=== PATIENT | male | born 1940 | race Caucasian/White ===

== ENCOUNTER 2023-04-18 11:11 | Emergency (ER) | payer OTHER, SELFPAY ==
[2023-04-18 11:20] VITALS: BP 137/93
--- NOTE | 2023-04-18 12:00 | ED.GENMED ---
History of Present Illness
General
Chief Complaint: Chest Problem
Source: patient
Exam Limitations: none
Time Seen by Provider: 04/18/23 11:41
Travel History
Have you had any contact with someone who has COVID-19?: No
Do you have any symptoms of coronavirus? Fever > 100 degrees, chills, cough, shortness of breath, sore throat, loss of taste or smell, muscle aches, or headache?: No
History of Present Illness
History of Present Illness:
83-year-old male presents for evaluation after being seen by urgent care. He fell in a parking lot 3 days ago and landed on his right side. He had persistent swelling in his right hand and pain in his right chest wall. Eventually got x-rays of
his right hand at the [facility] and went to the urgent care, [facility] to have his chest workup. He was told he had a fracture in his right hand. X-ray of his chest today showed possible pulmonary edema versus mass per the patient and
had an abnormal EKG and was sent here for further evaluation. He had no chest pain or shortness of breath prior to the fall. He is not anticoagulated. No fever. The pain in his right chest wall is made worse with breathing. No other complaints
at this time
Past History
Past History
ED Past Medical History: Cancer (Prostate cancer) and Seizures
ED Past Surgical History: Appendectomy, Orthopedic and Other
Social History
Tobacco: Non-smoker
Personal:
Living: with family
Employment: Retired
Phy Exam
Physical Exam
Physical Exam:
General: Well-appearing male no acute respiratory distress
HEENT: Normocephalic atraumatic
Heart: Regular rate and rhythm no murmurs
Lungs: Clear to auscultation bilaterally no wheezing
Musculoskeletal exam: Right hand wrapped in an ulnar gutter splint. Right anterior lateral chest wall tender without step ecchymosis or swelling
Abdomen is soft and nontender nondistended normal bowel sounds
Extremities: No cyanosis or edema
Course
Orders/Labs/Results
Orders:
Orders
04/18/23 11:22
EKG [Electrocardiogram (*1)] Urgent
Reason for Study: Chest Pain
Electrocardiogram (*1) Urgent
Reason for Study: Chest Pain
EKG- Treatment ONCE
04/18/23 12:07
BNP [NT-proBNP] Urgent
Complete Blood Count/With Diff Urgent
Comprehensive Metabolic Panel Urgent
Troponin I Urgent
04/18/23 12:27
CT Chest With Iv Contrast Urgent
Comment:
Reason For Exam: right chest pain after fall,
Abnormal Lab Results
04/18/23
12:07
WBC 11.5 H 10^3/uL
(4.8-10.8)
MCH 31.6 H pg
(27.0-31.0)
Abs Immat Gran (auto) 0.1 H 10^3/uL
(0-0.05)
Absolute Neuts (auto) 8.6 H 10^3/uL
(1.4-6.5)
Absolute Monos (auto) 1.3 H 10^3/uL
(0.1-0.6)
Lymphocytes % 11.5 L %
(20.5-51.1)
Monocytes % 10.9 H %
(1.7-9.3)
Glucose 111 H mg/dl
(70-99)
Alkaline Phosphatase 155 H U/L
(38-126)
04/18/23 12:07
04/18/23 12:07
Vital Signs
Initial and Last Documented VS:
Initial Vital Signs
Temp Pulse Resp BP Pulse Ox
98.2 F 101 18 137/93 95
04/18/23 11:20 04/18/23 11:20 04/18/23 11:20 04/18/23 11:20 04/18/23 11:20
Last Documented Vital Signs
Temp Pulse Resp BP Pulse Ox
98.2 F 88 17 157/80 95
04/18/23 11:20 04/18/23 13:15 04/18/23 13:15 04/18/23 13:00 04/18/23 13:38
MDM/Problems Addressed
Differential Diagnosis Includes:
Recent fall with right hand pain and known fracture of the base of the fifth metacarpal. X-rays of the chest at the urgent care were reportedly abnormal by the patient and his son. Will attempt to load the x-rays on our system through radiology.
Patient may require more imaging of his chest. Will get labs as well. EKG here.
*Critical Care Note
Total Time (30-74mins, 75-104mins- exclusive of procedures): Not Applicable
Update Note
Update Note:
EKG shows sinus rhythm here no ischemic changes. Did order CT of the chest with IV contrast secondary to the questionable abnormal finding at urgent care. CT was negative for rib fracture or pneumo or hemothorax edema or mass. This is reassuring.
Suspect chest wall strain causing pain. Patient has an orthopedic doctor, Dr. Love he intends to follow-up with regarding his hand fracture
ED Attending Note
-
Portions of this chart may have been created with voice recognition software.� Occasional wrong word or��sound alike� substitutions may have occurred due to the inherent limitations of voice recognition software.
Discharge Plan
Departure
Patient Disposition: Home (Routine Discharge)
Date of Disposition: 04/18/23
Time of Disposition: 14:30
Patient with high blood pressure during this ER visit?: No
Discharge Problem:
Fracture of hand, Strain of chest wall
Instructions: Muscle and Bone Pain (DC)
Prescriptions:
No Action
phenytoin sodium extended 100 MG capsule
100 mg PO Q48H@0800
levothyroxine 125 MCG tablet
250 mcg PO MOTUWETHFR
irbesartan 150 MG tablet
150 mg PO QPM
gabapentin 600 MG tablet
600 mg PO QPM
phenytoin sodium extended 100 MG capsule
200 mg PO HS
garlic 1,000 MG capsule
1,000 mg PO DAILY
calcium carbonate-vitamin D3 [Calcium 600 + D(3)] 1 EACH tablet
1 tab PO HS
calcium carbonate-vitamin D3 [Calcium 600 + D(3)] 1 EACH tablet
2 tab PO DAILY
cilostazol 100 mg Tablet
100 mg PO BID
atorvastatin 80 mg Tablet
80 mg PO QPM
aspirin 325 mg Tablet
325 mg PO QPM
Theragen Tablet
1 tab PO DAILY
phenytoin sodium extended 100 mg Capsule
200 mg PO Q48H@0800
tamsulosin 0.4 mg Capsule
0.4 mg PO QPM
Patient Comments:
04/18/2023, take 30 min after evening meal.
levothyroxine 125 mcg Tablet
125 mcg PO SUSA
ibuprofen 200 mg Tablet
600 mg PO BIDPRN PRN (Reason: mild pain)
finasteride 1 mg Tablet
1 mg PO DAILY
magnesium oxide 400 mg magnesium Tablet
400 mg PO DAILY
Referrals:
Twin Gates MD [Family Provider] -
Activity Restrictions/Additional Instructions:
Keep splint on and dry. Follow-up with your orthopedic doctor as planned. Use ibuprofen or Tylenol for pain. Return if worse otherwise.
Interventions
Interventions:
*Risk Screen - Suicide Last Done: 04/18/23 12:04
*General Assessment Last Done: 04/18/23 12:04
*Neglect/Abuse Screening Last Done: 04/18/23 12:04
*ED COVID-19 Vaccine History Last Done: 04/18/23 12:03
ED- Cardiac Assessment Last Done: 04/18/23 13:38
ED- Pulmonary Assessment Last Done: 04/18/23 13:38
[2023-04-18 12:02] VITALS: BP 152/88; BMI 27.2
[2023-04-18 12:14] LABS: % Basophils 0.4 % (0-2); % Eosinophils 1.7 % (0-6); % Immature Granulocytes 0.5 % (0-0.5); % Lymphocytes 11.5 % (20.5-51.1); % Monocytes 10.9 % (1.7-9.3); Absolute Basophils 0.1 10^3/uL (0-0.2); Absolute Eosinophils 0.2 10^3/uL (0-0.7); Absolute Immature Granulocytes 0.1 10^3/uL (0-0.05); Absolute Lymphocytes 1.3 10^3/uL (1.2-3.4); Absolute Monocytes 1.3 10^3/uL (0.1-0.6); Absolute Neutrophils 8.6 10^3/uL (1.4-6.5); Hematocrit 47.5 % (39.0-52.0); Hemoglobin 16.2 g/dL (13.0-18.0); Mean Corp Hgb Conc. 34.1 g/dL (33.0-37.0); Mean Corpuscular Hgb 31.6 pg (27.0-31.0); Mean Corpuscular Volume 92.6 fL (80.0-94.0); Mean Platelet Volume 9.4 fL (7.4-10.4); Nucleated Red Blood Cells % 0 % (-); Platelet Count 171 10^3/uL (130-400); Red Blood Cell Count 5.13 10^6/uL (4.70-6.10); Red Cell Dist. Width 14.1 % (11.5-14.5); White Blood Cell Count 11.5 10^3/uL (4.8-10.8)
[2023-04-18 12:35] LABS: ALT (SGPT) 42 U/L (0-50); AST (SGOT) 31 U/L (17-59); Albumin 3.9 g/dl (3.5-5.0); Alkaline Phosphatase 155 U/L (38-126); Blood Urea Nitrogen 18 mg/dl (9-20); Calcium 9.6 mg/dl (8.4-10.2); Carbon Dioxide 30 mmol/L (22-30); Chloride 99 mmol/L (98-107); Estimated Creatinine Clearance 67 ml/min; Glucose 111 mg/dl (70-99); Potassium 4.5 mmol/L (3.5-5.1); Sodium 135 mmol/L (135-145); Total Bilirubin 0.7 mg/dl (0.2-1.3); Total Protein 6.6 g/dl (6.3-8.2); eGFR > 60.00
[2023-04-18 12:38] LABS: NT-proBNP 91.6 pg/ml; Troponin I < 0.012 ng/ml
[2023-04-18 13:00] VITALS: BP 157/80
[2023-04-18 14:36] VITALS: BP 152/81
== END 2023-04-18 14:50 | disposition home or self-care (01) ==
LOC: EMR 11:11
PROVIDERS: EMERGENCY PHYSICIAN Emergency Medicine; FAMILY PHYSICIAN Family Medicine
DX: S29.011A Strain of muscle and tendon of front wall of thorax, initial encounter (principal); S62.91XA Unspecified fracture of right hand, initial encounter for closed fracture; W19.XXXA Unspecified fall, initial encounter
CPT/HCPCS: 99285; 71260; 80053; 83880; 84484; 85025; 93005; Q9967

== ENCOUNTER 2023-04-27 11:40 | Emergency (ER) | payer OTHER, SELFPAY ==
[2023-04-27 11:42] VITALS: BP 146/97
[2023-04-27] MEDS: FLEET PHOSPHATE ENEMA-ADULT 135 ML RECTAL (14:11)
--- NOTE | 2023-04-27 15:16 | ED.GENMED ---
History of Present Illness
General
Chief Complaint: Bowel Problem
Source: patient
Exam Limitations: none
Time Seen by Provider: 04/27/23 12:21
Nursing documentation reviewed up to this point in time: agreed with
Travel History
Have you had any contact with someone who has COVID-19?: No
Do you have any symptoms of coronavirus? Fever > 100 degrees, chills, cough, shortness of breath, sore throat, loss of taste or smell, muscle aches, or headache?: No
History of Present Illness
History of Present Illness:
Patient with recent hand surgery, who has been taking Tylenol with codeine for pain relief, presents to ED secondary to inability to have bowel movement despite urge, along with difficulty urination over the past 24 hours. Denies fever or chills.
Denies nausea or vomiting. Denies trauma. Denies back pain. Denies previous history of similar symptoms.
Past History
Past History
ED Past Medical History: Cancer (Prostate cancer) and Seizures
ED Past Surgical History: Appendectomy, Orthopedic and Other
Social History
Tobacco: Non-smoker
Personal:
Living: with family
Employment: Retired
Review of Systems
Review of Systems
Allergies reviewed?: Yes
All Other Systems: ROS reviewed and negative except as documented in HPI and ROS
Constitutional: Reports no symptoms
Respiratory: Reports no symptoms
ABD/GI: Reports abdominal pain and constipated; Denies nausea or vomiting
: Reports difficulty voiding
Musculoskeletal: Reports no symptoms
Skin: Reports no symptoms
Neurological: Reports no symptoms
Phy Exam
Physical Exam
Physical Exam:
Physical Exam
General: mild distress, not acutely ill. afebrile
Head: nc/at. eomi
Neck: supple.
Abdomen: normal bowel sounds. mild lower abdominal tenderness to palpation.
Neuro: alert and oriented. no focal neurological deficits
Skin: no rash
Psychiatric: well kept. interactive and cooperative
Extremities: no edema. no calf tenderness.
Course
Orders/Labs/Results
Orders:
Orders
04/27/23 12:21
CR Obstruct Series W/pa Chest Urgent
Comment:
Reason For Exam: abdominal distention with lack of BM
04/27/23 12:24
Bladder Scan- Treatment ONCE
Straight cath- Treatment ONCE
04/27/23 13:39
Phosphate Enema [Fleet Phosphate Enema-Adult] 135 ml RECTAL NOW STA
Vital Signs
Initial and Last Documented VS:
Initial Vital Signs
Temp Pulse Resp BP Pulse Ox
98.2 F 110 16 146/97 98
04/27/23 11:42 04/27/23 11:42 04/27/23 11:42 04/27/23 11:42 04/27/23 11:42
Last Documented Vital Signs
Temp Pulse Resp BP Pulse Ox
98.1 F 113 18 135/86 97
04/27/23 15:27 04/27/23 15:27 04/27/23 15:27 04/27/23 15:27 04/27/23 15:27
MDM/Problems Addressed
MDM/Problems Addressed:
Bladder scan: > 500 ml urine. Patient straight cath, with significant improvement symptoms.
X-ray report reviewed. On rectal exam, hard stool along with soft stool removed manually. Patient given Fleet enema afterwards, with number of successful bowel movements. Patient expresses significant improvement in symptoms after treatment.
Patient remains afebrile, hemodynamically stable, and nontoxic-appearing. Patient will be advised to stop taking Tylenol with codeine, and take MiraLAX twice daily x 2 days, along with stool softener. Patient expresses understanding, at time of
discharge, to the care of his son.
*Critical Care Note
Total Time (30-74mins, 75-104mins- exclusive of procedures): Not Applicable
ED Attending Note
-
Portions of this chart may have been created with voice recognition software.� Occasional wrong word or��sound alike� substitutions may have occurred due to the inherent limitations of voice recognition software.
Discharge Plan
Departure
Patient Disposition: Home (Routine Discharge)
Date of Disposition: 04/27/23
Time of Disposition: 15:16
Patient with high blood pressure during this ER visit?: Yes
Condition: Good
Discharge Problem:
Constipation, Acute urinary retention
Instructions: Constipation, Adult (DC), Dealing with Urinary Retention from the Drugs You Take
Prescriptions:
No Action
phenytoin sodium extended 100 MG capsule
100 mg PO Q48H@0800
levothyroxine 125 MCG tablet
250 mcg PO MOTUWETHFR
irbesartan 150 MG tablet
150 mg PO QPM
gabapentin 600 MG tablet
600 mg PO QPM
phenytoin sodium extended 100 MG capsule
200 mg PO HS
garlic 1,000 MG capsule
1,000 mg PO DAILY
calcium carbonate-vitamin D3 [Calcium 600 + D(3)] 1 EACH tablet
1 tab PO HS
calcium carbonate-vitamin D3 [Calcium 600 + D(3)] 1 EACH tablet
2 tab PO DAILY
cilostazol 100 mg Tablet
100 mg PO BID
atorvastatin 80 mg Tablet
80 mg PO QPM
aspirin 325 mg Tablet
325 mg PO QPM
Theragen Tablet
1 tab PO DAILY
phenytoin sodium extended 100 mg Capsule
200 mg PO Q48H@0800
tamsulosin 0.4 mg Capsule
0.4 mg PO QPM
Patient Comments:
04/18/2023, take 30 min after evening meal.
levothyroxine 125 mcg Tablet
125 mcg PO SUSA
ibuprofen 200 mg Tablet
600 mg PO BIDPRN PRN (Reason: mild pain)
finasteride 1 mg Tablet
1 mg PO DAILY
magnesium oxide 400 mg magnesium Tablet
400 mg PO DAILY
Referrals:
Twin Gates MD [Family Provider] -
Activity Restrictions/Additional Instructions:
As discussed, please discontinue use of codeine, as it may be contributing to your presenting symptoms. Please use MiraLAX twice daily x 2 days, until you start having regular bowel movements, along with daily administration of stool softener.
Interventions
Interventions:
*Risk Screen - Suicide Last Done: 04/27/23 16:01
*General Assessment Last Done: 04/27/23 16:01
*ED COVID-19 Vaccine History Last Done: 04/27/23 11:42
*Nursing Disposition Last Done: 04/27/23 16:01
YZ-Jyfbmq-Uokvvkfuet Assessment Last Done: 04/27/23 13:02
Discharge Date and Time
Discharge Date/Time: 04/27/23 16:02
[2023-04-27 15:27] VITALS: BP 135/86
== END 2023-04-27 16:02 | disposition home or self-care (01) ==
LOC: EMR 11:40
PROVIDERS: EMERGENCY PHYSICIAN Emergency Medicine; FAMILY PHYSICIAN Family Medicine
DX: K59.00 Constipation, unspecified (principal); R33.9 Retention of urine, unspecified; R56.9 Unspecified convulsions; K21.9 Gastro-esophageal reflux disease without esophagitis; M19.90 Unspecified osteoarthritis, unspecified site; E78.5 Hyperlipidemia, unspecified; I10 Essential (primary) hypertension; M48.00 Spinal stenosis, site unspecified; E03.9 Hypothyroidism, unspecified; Z85.46 Personal history of malignant neoplasm of prostate; Z86.73 Personal history of transient ischemic attack (TIA), and cerebral infarction without residual deficits; Z87.891 Personal history of nicotine dependence; Z79.82 Long term (current) use of aspirin; Z88.8 Allergy status to other drugs, medicaments and biological substances
CPT/HCPCS: 99283; 51701; 51798; 74022

== ENCOUNTER 2023-04-28 18:59 | Observation (INO) | payer OTHER, SELFPAY ==
[2023-04-28] VITALS (9 sets, daily range): BP systolic 113–146; BP diastolic 66–84; BMI 25.8
--- NOTE | 2023-04-28 11:40 | ED.GENMED ---
History of Present Illness
General
Chief Complaint: Bowel Problem
Source: patient and family
Exam Limitations: none
Time Seen by Provider: 04/28/23 11:34
Nursing documentation reviewed up to this point in time: agreed with
Travel History
Have you had any contact with someone who has COVID-19?: No
Do you have any symptoms of coronavirus? Fever > 100 degrees, chills, cough, shortness of breath, sore throat, loss of taste or smell, muscle aches, or headache?: No
History of Present Illness
History of Present Illness:
Patient treated yesterday for narcotic induced urinary retention and constipation, returns to ED secondary to continued difficulty with urination and bowel movement since being discharged home. Denies fever. Denies nausea or vomiting. Patient has
not eaten or drank much water since being home. Patient has taken MiraLAX as well as stool softener, without relief in symptoms.
Past History
Past History
ED Past Medical History: Cancer (Prostate cancer) and Seizures
ED Past Surgical History: Appendectomy, Orthopedic and Other
Social History
Tobacco: Non-smoker
Personal:
Living: with family
Employment: Retired
Review of Systems
Review of Systems
Allergies reviewed?: Yes
All Other Systems: ROS reviewed and negative except as documented in HPI and ROS
Constitutional: Reports no symptoms
EENT: Reports no symptoms
Respiratory: Reports no symptoms
Cardiac: Reports no symptoms
ABD/GI: Reports abdominal pain and constipated
: Reports difficulty voiding
Musculoskeletal: Reports no symptoms
Skin: Reports no symptoms
Neurological: Reports no symptoms
Phy Exam
Physical Exam
Physical Exam:
Physical Exam
General: mild distress, not acutely ill. afebrile
Head: nc/at. eomi
Neck: supple. no meningeal signs.
Heart: s1/s2 regular rate and rhythm, no murmur. equal radial pulses.
Lungs: no acute respiratory distress. clear bilaterally
Abdomen: normal bowel sounds. mild lower abdominal tenderness to palpation.
Neuro: alert and oriented. no focal neurological deficits
Skin: no rash
Psychiatric: well kept. interactive and cooperative
Extremities: no edema. no calf tenderness.
Course
Orders/Labs/Results
Orders:
Orders
04/28/23 11:35
Phosphate Enema [Fleet Phosphate Enema-Adult] 135 ml RECTAL NOW STA
04/28/23 11:36
Bladder Scan- Treatment ONCE
04/28/23 11:43
0.9% Sodium Chloride 500 ml [Nss] 500 ml IV BOLUS
04/28/23 11:45
Basic Metabolic Panel Urgent
Complete Blood Count/No Diff Urgent
Magnesium Urgent
Urinalysis Reflex To Culture Urgent
Date Specimen was Collected: 04/28/23
Time Specimen was Collected: 11:44
Urine Microscopic Reflex Cult Urgent
Urine Culture Urgent
DONNIE Source: U
Specimen Description:
Date Specimen was Collected: 04/28/23
Time Specimen was Collected: 11:44
04/28/23 13:36
Enema- Treatment ONCE
Type: Soap Suds
04/28/23 16:12
CT Abd/pel Without Iv Or Oral Urgent
Comment:
Reason For Exam: LLQ pain with hematuria
04/28/23 16:49
CefTRIAXone [Rocephin] 1,000 mg IV NOW STA
04/28/23 18:05
Admit/Transfer Patient As Directed
Co-Sign Provider:
Level of Care: Observation services
Assign to:: Medical/Surgical
Physician / Group: Edith
Diagnosis: Urinary Retention, Constipation
04/28/23 18:12
Code Status As Directed
Resuscitation Status: Full Code
04/28/23 19:22
Acetaminophen [Tylenol] 650 mg PO Q4HPRN PRN
Levothyroxine [Synthroid] 125 mcg PO SuSa@0700
Methylnaltrexone [place] [Relistor] 8 mg SC ONCE ONE
04/28/23 19:22
Activity As Directed
Activity Level: Out of Bed-Early Mobility
With Assistance
Bladder Scan As Directed
Follow Bladder Retention/Intermittent Cath Algorithm?: No
PRN if no void in __ hours: 6
Frequency: Per Retention Algorithm
If Bladder Scan Result >: 400
then:: Place catheter
I&O [Intake/ Output] As Directed
Frequency: q12h
Pneumatic Compression Sleeves As Directed
Type: Knee high
Vital Signs As Directed
Frequency: Per unit guidelines
DX Deep Vein Thrombosis Video Routine
04/28/23 20:00
Cilostazol [Pletal] 100 mg PO BID
Docusate Sodium [Colace] 100 mg PO BID
04/28/23 22:00
Phenytoin [Dilantin] 100 mg PO HS
04/29/23 05:43
Basic Metabolic Panel IN AM
Complete Blood Count/No Diff IN AM
Magnesium IN AM
TSH Reflex To Free T4 IN AM
04/29/23 Breakfast
Full Liquids
At Your Request: Limited Participation
Does patient need a safe tray?: No
04/29/23 08:00
Atorvastatin [Lipitor] 80 mg PO DAILY
Phenytoin [Dilantin] 200 mg PO Q48H
04/29/23 12:00
finasteride 1 mg PO DAILY
04/29/23 16:00
CefTRIAXone [Rocephin] 1,000 mg IV Q24H
04/29/23 18:00
Aspirin 325 mg PO QPM
Gabapentin [Neurontin] 600 mg PO QPM
Irbesartan [Avapro] 150 mg PO QPM
Tamsulosin [Flomax] 0.4 mg PO QPM
04/30/23 07:00
Levothyroxine [Synthroid] 250 mcg PO MoTuWeThFr@0700
04/30/23 08:00
Phenytoin [Dilantin] 100 mg PO Q48H
Abnormal Lab Results
04/28/23
11:45
WBC 14.8 H 10^3/uL
(4.8-10.8)
MCH 31.2 H pg
(27.0-31.0)
BUN 22 H mg/dl
(9-20)
Glucose 123 H mg/dl
(70-99)
Urine Ketones 1+ A
(Negative)
Ur Occult Blood Reflex 2+ A
(Negative)
Urine Bilirubin 1+ A
(Negative)
Leukocyte Esterase Rfl Trace A
(Negative)
Urine RBC 11-15 A /HPF
(0-2)
Urine WBC (Reflex) 16-20 A /HPF
(0-5)
Urine Bacteria (Reflex) Many A
(Negative)
04/28/23 11:45
04/28/23 11:45
Vital Signs
Initial and Last Documented VS:
Initial Vital Signs
Temp Pulse Resp BP Pulse Ox
98.7 F 127 16 113/79 94
04/28/23 10:50 04/28/23 10:50 04/28/23 10:50 04/28/23 10:50 04/28/23 10:50
Last Documented Vital Signs
Temp Pulse Resp BP Pulse Ox
99 F 91 18 131/81 96
04/29/23 07:10 04/29/23 07:10 04/29/23 07:10 04/29/23 07:10 04/29/23 07:10
MDM/Problems Addressed
MDM/Problems Addressed:
Patient with minimal stool production after enema administration, but with worsening abdominal pain and abdominal distention. As such, decision made to obtain CT abdomen pelvis with concern for potential perforated bowel.
CT abdomen pelvis: No perforation noted, but with moderate stool burden.
Bladder scanner reveals greater than 500 mL of urine, and relieved with straight catheterization. However, urinalysis concerning for the development of UTI. Patient will be admitted for further evaluation treatment, including IV antibiotics, IV
fluids, and continue bowel regimen.
*Critical Care Note
Total Time (30-74mins, 75-104mins- exclusive of procedures): Not Applicable
ED Attending Note
-
Portions of this chart may have been created with voice recognition software.� Occasional wrong word or��sound alike� substitutions may have occurred due to the inherent limitations of voice recognition software.
Discharge Plan
Departure
Patient Disposition: Admit
Date of Disposition: 04/28/23
Time of Disposition: 17:30
Admit to: Telemetry
Presentation/result/management discussed w/ accepting MD/DO: Hospitalist
Discharge Problem:
Abdominal pain, Acute urinary retention, Acute UTI
Interventions
Interventions:
*ED COVID-19 Vaccine History Last Done: 04/28/23 10:50
*Nursing Disposition Last Done: 04/28/23 19:16
UP-Gdxvhz-Zauybrmvbr Assessment Last Done: 04/28/23 12:16
Discharge Date and Time
Discharge Date/Time: 04/28/23 19:18
[2023-04-28 11:59] LABS: Hematocrit 44.6 % (39.0-52.0); Hemoglobin 15.7 g/dL (13.0-18.0); Mean Corp Hgb Conc. 35.2 g/dL (33.0-37.0); Mean Corpuscular Hgb 31.2 pg (27.0-31.0); Mean Corpuscular Volume 88.5 fL (80.0-94.0); Platelet Count 219 10^3/uL (130-400); Red Blood Cell Count 5.04 10^6/uL (4.70-6.10); Red Cell Dist. Width 13.9 % (11.5-14.5); White Blood Cell Count 14.8 10^3/uL (4.8-10.8)
[2023-04-28] MEDS: FLEET PHOSPHATE ENEMA-ADULT 135 ML RECTAL (12:12)
[2023-04-28 12:20] LABS: Urine Albumin Trace (Neg - Trace); Urine Bilirubin 1+ (Negative); Urine Character Clear (Clear); Urine Color Yellow; Urine Glucose Negative (Negative); Urine Ketone 1+ (Negative); Urine Leukocyte Trace (Negative); Urine Nitrite Negative (Negative); Urine Occult Blood 2+ (Negative); Urine Specific Gravity 1.025 (<1.030); Urine Urobilinogen Negative (Neg - 1+)
[2023-04-28 12:22] LABS: Blood Urea Nitrogen 22 mg/dl (9-20); Calcium 9.5 mg/dl (8.4-10.2); Carbon Dioxide 26 mmol/L (22-30); Chloride 103 mmol/L (98-107); Glucose 123 mg/dl (70-99); Magnesium 2.1 mg/dl (1.6-2.3); Potassium 4.2 mmol/L (3.5-5.1); Sodium 135 mmol/L (135-145); eGFR > 60.00
[2023-04-28 12:39] LABS: Urine Bacteria Many (Negative); Urine Squamous Cell 0-2 /LPF (Few); Urine White Cell 16-20 /HPF (0-5)
[2023-04-28] MEDS: NSS 500 IV (14:24)
[2023-04-28] MEDS: ROCEPHIN 1000 MG IV (16:53)
--- NOTE | 2023-04-28 18:21 | HPS.HSE ---
Addendum entered and electronically signed by Davonte Shamra MD 04/28/23 18:40:
I saw and examined the patient.
The CARTON STAMPER or PA's note was reviewed and I agree with the note.
Comment: After my examination and review abdomen remains protuberant and tender with waves of cramping abdominal pain that go away and has trouble having further bowel movements he has apparent urine retention is led to a urinary tract infection
with many bacteria which will be treated empirically awaiting culture given the lack of results with multiple enemas stool softeners and laxatives including MiraLAX twice daily which will be continued I would give the patient Relistor to counteract
the narcotic effects of his prior dosing with codeine for his pain hydration will also be important continued bladder scanning for retention if retention issues continue may benefit from the addition of tamsulosin but I believe is driven by the his
ongoing constipation and should resolve once that is.
Original Note:
Family Physician
-
Family Physician: [facility]
Chief Complaint
-
Constipation and Urinary Retention
History of Present Illness
Pt is an 83yo M w/ PMH of HTN, HLD, PAD, Hypothyroidism, GERD, Prostate Cancer, and Seizure disorder is presenting to the ED c/o urinary retention and abdominal discomfort. The pt was seen at yesterday and treated for narcotic induced
constipation as well as urinary retention. He states that when he arrived home, his symptoms had mostly resolved after enema and straight catheterization yesterday, but as of this morning, his symptoms have returned. He states he has not ingested
much of anything since his return home. He admits to lower abdominal pain, chills and headache. Pt denies fever, diaphoresis, nausea. vomiting, low back pain, or saddle paraesthesias.
Medical History
Past Medical History
Past Medical History: Reports Other
Additional Past Medical History:
Peripheral Arterial Disease
Essential Hypertension
Hyperlipidemia
Seizure Disorder
Spinal Stenosis
Hypothyroidism
Prostate Cancer
Past Surgical History: Reports Other
Additional Past Surgical History:
Right Fem-Pop Bypass
Appendectomy
Herniated Disc Repair
Knee Replacement x 3
Social History
Tobacco: Non-smoker
Alcohol: Daily (1 beer Daily)
Family History
Family History: Not pertinent
Allergies / Home Medications
Allergies reflects when Allergies were last updated in [employer].
Home Medications with original date entered in [employer]
Allergy/Medication List:
Allergies
Allergy/AdvReac Type Severity Reaction Status Date / Time
clopidogrel bisulfate Allergy Unknown Verified 04/27/23 11:44
[From Plavix]
levetiracetam [From Keppra] Allergy Unknown Verified 04/27/23 11:44
lisinopril Allergy 'tickling Verified 04/27/23 11:44
cough'
Home Medications
irbesartan 150 mg tablet 150 mg PO QPM 09/10/14
levothyroxine 125 mcg tablet 250 mcg PO MOTUWETHFR 09/10/14
phenytoin sodium extended 100 mg capsule 100 mg PO Q48H@0800 09/10/14
gabapentin 600 mg tablet 600 mg PO QPM 06/07/15
calcium carbonate 600 mg-vitamin D3 10 mcg (400 unit) tablet (Calcium 600 + D(3)) 1 tab PO HS 06/25/15
calcium carbonate 600 mg-vitamin D3 10 mcg (400 unit) tablet (Calcium 600 + D(3)) 2 tab PO DAILY 06/25/15
garlic 1,000 mg capsule 1,000 mg PO DAILY 06/25/15
phenytoin sodium extended 100 mg capsule 100 mg PO HS 06/25/15
cilostazol 100 mg tablet 100 mg PO BID 10/27/22
aspirin 325 mg tablet 325 mg PO QPM 04/18/23
atorvastatin 80 mg tablet 80 mg PO DAILY 04/18/23
finasteride 1 mg tablet 1 mg PO DAILY 04/18/23
levothyroxine 125 mcg tablet 125 mcg PO SUSA 04/18/23
magnesium oxide 400 mg PO DAILY 04/18/23
phenytoin sodium extended 100 mg capsule 200 mg PO Q48H@0800 04/18/23
tamsulosin 0.4 mg capsule 0.4 mg PO QPM 04/18/23
therapeutic multivitamin 1 tab PO DAILY 04/18/23
bisacodyl 5 mg tablet,delayed release (Dulcolax (bisacodyl)) 10 mg PO DAILYPRN PRN CONSTIPATION 04/28/23
polyethylene glycol 3350 17 gram oral powder packet (Miralax) 17 g PO DAILYPRN PRN CONSTIPATION 04/28/23
Review of Systems
-
A 12 point ROS was completed and negative except as noted: Yes
Constitutional: Reports Chills
Respiratory: Denies Cough or Trouble Breathing
Cardiac: Denies Chest Pain or Palpitations
Abdomen/GI: Reports See HPI
Physical Exam
Vital Signs
Vital Signs
Temp Pulse Resp BP Pulse Ox
98.7 F 127 16 123/84 90
04/28/23 10:50 04/28/23 10:50 04/28/23 10:50 04/28/23 16:01 04/28/23 16:00
Physical Exam
General: Comfortable and Conversant
HEENT: Anicteric and Moist mucous membranes
Respiratory: Clear and Non Labored Respirations
Cardiac: S1/S2 and Regular Rhythm
GI: Soft, Tender (Mild throughout without rebound or guarding) and Distended (Hyper-resonate to percussion)
Musculoskeletal: No Clubbing, No Cyanosis and No Edema
Skin: Warm and Dry
Neuro: Awake, Oriented and Nonfocal/grossly intact
Psych: Calm
Laboratory Results
-
04/28/23 11:45
04/28/23 11:45
Data Reviewed
-
CT Scan: Report Reviewed by me
Lab Data: Labs Reviewed by me
Impression/Plan
-
Severe Constipation
-Patient required multiple enemas in ED yesterday and today
-Give dose of Relistor
-Continue Miralax BID
Urinary Tract Infection with Urinary Retention
-Patient required straight cath yesterday and today
-Monitor bladder scans
-If continued retention would place Castro
-Continue Rocephin
-Await urine culture
Peripheral Arterial Disease
-Continue aspirin and Pletal
Essential Hypertension
-Continue irbesartan with hold parameters
Hyperlipidemia
-Continue atorvastatin
Seizure Disorder
-Continue phenytoin
Spinal Stenosis
-Continue gabapentin
Hypothyroidism
-Continue levothyroxine
Hx Prostate CA
-Continue finasteride and tamsulosin
DVT Proph: SCDs
Code Status: Full Code
[2023-04-28] MEDS: SYNTHROID PO (21:02)
[2023-04-28] MEDS: RELISTOR 8 MG SC (21:49)
[2023-04-28] MEDS: COLACE 100 MG PO (21:50)
[2023-04-28] MEDS: PLETAL 100 MG PO (21:51)
--- NOTE | 2023-04-28 21:59 | W.PN.UPDATE ---
Update Note
Progress Note Update
Patient reported that he is using phenytoin 200mg at hs plus his doses of 100mg q48hrs that alternated with 200mg q48hrs during daytime. hs dose changed to 200mg and will check phenytoin level.
[2023-04-28] MEDS: DILANTIN 200 MG PO (22:45)
--- NOTE | 2023-04-28 23:00 | PTCARENOTE ---
Received pt from ED, pt was pulled over per request. AAOx3 TUOLUMNE, pt complaining of bladder feeling full- BS for 420ml- contacted [employer]- li ordered and inserted. Will continue to monitor
[2023-04-29] MEDS: TYLENOL 650 MG PO ×2 (02:23→13:25)
[2023-04-29] MEDS: MYLICON 80 MG PO ×2 (02:23→08:39)
[2023-04-29 06:28] LABS: Dilantin 15.7 ug/ml (10-20); Hematocrit 40.8 % (39.0-52.0); Hemoglobin 14.4 g/dL (13.0-18.0); Mean Corp Hgb Conc. 35.3 g/dL (33.0-37.0); Mean Corpuscular Hgb 31.6 pg (27.0-31.0); Mean Corpuscular Volume 89.7 fL (80.0-94.0); Mean Platelet Volume 9.3 fL (7.4-10.4); Platelet Count 214 10^3/uL (130-400); Red Blood Cell Count 4.55 10^6/uL (4.70-6.10); Red Cell Dist. Width 13.6 % (11.5-14.5)
[2023-04-29 06:29] LABS: Blood Urea Nitrogen 18 mg/dl (9-20); Calcium 8.7 mg/dl (8.4-10.2); Carbon Dioxide 26 mmol/L (22-30); Chloride 103 mmol/L (98-107); Estimated Creatinine Clearance 76 ml/min; Glucose 112 mg/dl (70-99); Magnesium 2.2 mg/dl (1.6-2.3); Potassium 3.8 mmol/L (3.5-5.1); Sodium 134 mmol/L (135-145); eGFR > 60.00
[2023-04-29 07:09] LABS: TSH Reflex To Free T4 1.88 uIU/ml (0.47-4.68)
[2023-04-29 07:10] VITALS: BP 131/81
[2023-04-29] MEDS: LIPITOR 80 MG PO (08:37)
[2023-04-29] MEDS: COLACE 100 MG PO ×2 (08:37→19:54)
[2023-04-29] MEDS: PLETAL 100 MG PO ×2 (08:38→19:54)
[2023-04-29] MEDS: SYNTHROID 125 MCG PO (08:38)
[2023-04-29] MEDS: DILANTIN 200 MG PO ×2 (08:39→19:54)
--- NOTE | 2023-04-29 09:39 | W.PN.HOSP.TC ---
Today's Communication/Plan
-
Continue aggressive bowel regime
Hydration
Will consult GI in regards to continued constipation has been resistant to modalities and aggressive bowel regime
Assessment / Plan
Assessment / Plan
Pt is an 83yo M w/ PMH of HTN, HLD, PAD, Hypothyroidism, GERD, Prostate Cancer, and Seizure disorder is presenting to the ED c/o urinary retention and abdominal discomfort. The pt was seen at yesterday and treated for narcotic induced
constipation as well as urinary retention. He states that when he arrived home, his symptoms had mostly resolved after enema and straight catheterization yesterday, but as of this morning, his symptoms have returned. He states he has not ingested
much of anything since his return home. He admits to lower abdominal pain, chills and headache. Pt denies fever, diaphoresis, nausea. vomiting, low back pain, or saddle paraesthesias. Abdomen remains protuberant and tender with waves of cramping
abdominal pain that go away and has trouble having further bowel movements he has apparent urine retention is led to a urinary tract infection with many bacteria which will be treated empirically awaiting culture given the lack of results with
multiple enemas stool softeners and laxatives including MiraLAX twice daily which will be continued I would give the patient Relistor to counteract the narcotic effects of his prior dosing with codeine for his pain hydration will also be important
continued bladder scanning for retention if retention issues continue may benefit from the addition of tamsulosin but I believe is driven by the his ongoing constipation and should resolve once that is.
Persisting postvoid residual volumes are high in the face of continued constipation had Castro catheter inserted.
Severe Constipation
-Patient required multiple enemas in ED yesterday and date of admission yesterday
-Given dose of Relistor without much effect
-Continue Miralax BID
-
CT imaging with moderate fecal material throughout the colon that seems to have progressed from previous imaging in the past week
Urinary Tract Infection with Urinary Retention
-Patient required straight cath yesterday and today
-Monitor bladder scans
-If continued retention would place Castro
-Continue Rocephin
-Await urine culture
Peripheral Arterial Disease
-Continue aspirin and Pletal
Recent right hand fracture after fall
-Was treated with Tylenol with codeine which may have aggravated his initial presentation of constipation
-Did not have much response with narcotic antagonist yesterday
Essential Hypertension
-Continue irbesartan with hold parameters
Hyperlipidemia
-Continue atorvastatin
Seizure Disorder
-Continue phenytoin
Spinal Stenosis
-Continue gabapentin
Hypothyroidism
-Continue levothyroxine
Hx Prostate CA
-Continue finasteride and tamsulosin
-Indwelling Castro catheter/instigate void trial after relieving constipation
DVT Proph: SCDs
Code Status: Full Code
Anticipated Discharge: 24 - 48 hours
Subjective/Interval History
-
Date of Service: April 29, 2023
Very small result with multiple enemas and even after Relistor yesterday remains distended and constipated had to have Castro catheter inserted
Objective Data
-
Labs:
Laboratory Results
04/29/23
05:43
WBC 15.0 H
Hgb 14.4
Hct 40.8
Plt Count 214
Sodium 134 L
Potassium 3.8
Chloride 103
Carbon Dioxide 26
BUN 18
Creatinine 0.7
Glucose 112 H
Calcium 8.7
Vital Signs:
Vital Signs
Temp Pulse Resp BP Pulse Ox
99 F 91 18 131/81 96
04/29/23 07:10 04/29/23 07:10 04/29/23 07:10 04/29/23 07:10 04/29/23 07:10
I&O
04/28/23 04/29/23 04/30/23
06:59 06:59 06:59
Intake Total 960 / 960
Output Total 525 / 525
Balance 435 / 435
Review of Systems
-
History Source: Patient
Constitutional: Reports No Appetite
Respiratory: Reports No Symptoms
Cardiac: Reports No Symptoms
Abdomen/GI: Reports Constipated
Genitourinary: Reports Frequency and Hesitancy
Physical Exam
-
General: Well Developed
HEENT: Normocephalic
Cardiac: Regular Rhythm
GI: Soft, Tender and Distended
Neuro: Awake, Alert, Oriented, AO x 3 and No Motor Deficits
Data Reviewed
-
Total Time Spent with Patient (in minutes): 56
Labs: Labs Reviewed by me (Leukocytosis still trending up/urinalysis with apparent UTI/)
[2023-04-29] MEDS: NON-FORMULARY ITEM 1 MG PO (11:32)
--- NOTE | 2023-04-29 14:19 | CM ---
Initial assessment completed with pt.
Pt is an 83yr old male admitted under OBS with urinary retention and constipation
SOLANO issued and signed copy on chart.
At baseline, resident lives alone in a 1 story home with 4 steps to enter.
Pt is independent at baseline; driving and does not have current/hx of DME/VN/SNF.
PCP; [facility]
Pharm; [facility]ast[facility]
PLAN: home with no needs
[2023-04-29] MEDS: STERILE WATER FOR INJECTION 10 ML IV (15:00)
[2023-04-29] MEDS: ROCEPHIN 1000 MG IV (15:00)
--- NOTE | 2023-04-29 16:15 | PTCARENOTE ---
2 molasses enemas given per order, patient tolerated with small BM from each and some relief
[2023-04-29 16:57] VITALS: BP 147/81
[2023-04-29] MEDS: AVAPRO 150 MG PO (16:57)
[2023-04-29] MEDS: FLOMAX 0.400000000000000022 MG PO (16:58)
[2023-04-29] MEDS: ASPIRIN 325 MG PO (16:58)
[2023-04-29] MEDS: NEURONTIN 600 MG PO (16:58)
[2023-04-29] MEDS: OSCAL 500 + D 500 MG PO (23:07)
[2023-04-29 23:20] VITALS: BP 130/69
--- NOTE | 2023-04-29 23:27 | CON.GI ---
Consultation
-
Date/Time Consultation Requested: 04/29/2023
Date/Time Consultation Performed: 04/29/2023
Requesting Provider: Dr. Sharma
Performing Provider: Dr. Bland
Reason for Consultation: Constipation
Medical History
Chief Complaint / HPI
Chief Complaint: Constipation
History of Present Illness:
83-year-old male with history of prostate cancer, history of seizures presenting with constipation and urinary retention. As per patient, he had hand surgery recently and was put on Tylenol with codeine about 2 weeks ago. In the last couple of
days, he has been having some abdominal pain, upper and lower abdomen and constipation. Since , he has not had much bowel movements. Prior bowel pattern was 2 bowel movements a day with some pushing and straining and some incomplete
evacuation. Reports having colonoscopy couple of years ago at [facility] with Dr. Xiao and says it was unremarkable, previous history of colon polyps. History of hemorrhoidal bleeding in the past, status post hemorrhoidectomy with Dr. Xiao.
Prior to this episode, denies much GI symptoms. No abdominal pain, nausea, vomiting, heartburn or trouble swallowing. No unintentional weight loss or NSAID use.
In the ER, leukocytosis noted, CT scan of the abdomen pelvis without contrast showing moderate fecal material throughout the colon, fatty infiltration of the pancreas.
Past Medical History
Past Medical History: HTN, Hypercholesterolemia, Hypothyroidism and Other ( Prostate cancer)
Past Surgical History: Appendectomy
Social History
Tobacco: Non-Smoker
Alcohol: Daily
Family History
Family History: Reviewed & Not Pertinent
Allergies / Home Medications
Allergy/AdvReac Type Severity Reaction Status Date / Time
clopidogrel bisulfate Allergy Unknown Verified 04/27/23 11:44
[From Plavix]
levetiracetam [From Keppra] Allergy Unknown Verified 04/27/23 11:44
lisinopril Allergy 'tickling Verified 04/27/23 11:44
cough'
Medication Instructions Recorded
irbesartan 150 mg tablet 150 mg PO QPM Blood Pressure 09/10/14
levothyroxine 125 mcg tablet 250 mcg PO MOTUWETHFR@07 Thyroid 09/10/14
phenytoin sodium extended 100 mg 100 mg PO Q48H@0800 09/10/14
capsule
gabapentin 600 mg tablet 600 mg PO QPM Pain 06/07/15
calcium carbonate 600 mg-vitamin 1 tab PO HS Supplement 06/25/15
D3 10 mcg (400 unit) tablet
(Calcium 600 + D(3))
calcium carbonate 600 mg-vitamin 2 tab PO DAILY Supplement 06/25/15
D3 10 mcg (400 unit) tablet
(Calcium 600 + D(3))
garlic 1,000 mg capsule 1,000 mg PO DAILY Supplement 06/25/15
phenytoin sodium extended 100 mg 200 mg PO HS 06/25/15
capsule
cilostazol 100 mg tablet 100 mg PO BID VASCULAR DISEASE 10/27/22
aspirin 325 mg tablet 325 mg PO QPM Pain 04/18/23
atorvastatin 80 mg tablet 80 mg PO DAILY High Cholesterol 04/18/23
finasteride 1 mg tablet 1 mg PO DAILY Urinary Issue 04/18/23
levothyroxine 125 mcg tablet 125 mcg PO SUSA@07 Thyroid 04/18/23
magnesium oxide 400 mg PO DAILY Supplement 04/18/23
phenytoin sodium extended 100 mg 200 mg PO Q48H@0800 04/18/23
capsule
tamsulosin 0.4 mg capsule 0.4 mg PO QPM 04/18/23
therapeutic multivitamin 1 tab PO DAILY 04/18/23
acetaminophen 300 mg-codeine 30 mg 1 tab PO Q8HPRN PRN HAND PAINS 04/28/23
tablet
bisacodyl 5 mg tablet,delayed 10 mg PO DAILYPRN PRN CONSTIPATION 04/28/23
release (Dulcolax (bisacodyl))
polyethylene glycol 3350 17 gram 17 g PO DAILYPRN PRN CONSTIPATION 04/28/23
oral powder packet (Miralax)
Review of Systems
-
All other systems: A 12 pt ROS was Negative except as stated above in HPI
Vital Signs
Temp Pulse Resp BP Pulse Ox
98.3 F 100 20 130/69 90
04/29/23 23:20 04/29/23 23:20 04/29/23 23:20 04/29/23 23:20 04/29/23 23:20
Physical Exam
Exam
GI: Soft and Tender (Discomfort on palpation in the mid and lower abdomen mild distention noted,)
Rectal: Other (Rectal exam showed large amount of hard stool in the rectal vault, status post disimpaction)
Results
WBC 15.0 10^3/uL (4.8-10.8) H 04/29/23 05:43
Hgb 14.4 g/dL (13.0-18.0) 04/29/23 05:43
Hct 40.8 % (39.0-52.0) 04/29/23 05:43
MCV 89.7 fL (80.0-94.0) 04/29/23 05:43
Plt Count 214 10^3/uL (130-400) 04/29/23 05:43
Sodium 134 mmol/L (135-145) L 04/29/23 05:43
Potassium 3.8 mmol/L (3.5-5.1) 04/29/23 05:43
Chloride 103 mmol/L (98-107) 04/29/23 05:43
Carbon Dioxide 26 mmol/L (22-30) 04/29/23 05:43
BUN 18 mg/dl (9-20) 04/29/23 05:43
Creatinine 0.7 mg/dL (0.7-1.3) 04/29/23 05:43
Calcium 8.7 mg/dl (8.4-10.2) 04/29/23 05:43
Diagnostic Image Results:
Prior GI Procedures:
EGD:
Colonoscopy:
Assessment / Plan
-
83-year-old male with history of hypertension, hypothyroidism, prostate cancer, recent hand surgery, put on Tylenol/codeine now presenting with fecal impaction/urinary retention, CT scan showing moderate stool in the colon, rectal exam showing fecal
impaction in the rectum status post disimpaction.
-Fecal impaction likely due to constipation from recent codeine use
Continue milk of molasses enemas twice a day
Will also start MiraLAX 1 capful twice a day
Monitor bowel movements and once bowels are evacuated, can titrate MiraLAX dose based on his bowel movements.
Reports having colonoscopy couple of years ago at [facility] with Dr. Xiao.
Will follow
-
-
Thank you for consultation and allowing me to participate in the patient's care. Please call the application security developer GI physician during the after hours with any questions or concerns.
[2023-04-30] MEDS: SYNTHROID 250 MCG PO (05:29)
--- NOTE | 2023-04-30 06:07 | PTCARENOTE ---
Patient with 175cc output from his li this shift, tea colored. TAKE OUT WAITER/WAITRESS aware, she asked me to bladder scan him, his bladder was empty. She ordered labs for this morning.
[2023-04-30 07:00] VITALS: BP 120/75
[2023-04-30 07:31] LABS: Hemoglobin 15.4 g/dL (13.0-18.0); Mean Corp Hgb Conc. 34.2 g/dL (33.0-37.0); Mean Corpuscular Hgb 31.1 pg (27.0-31.0); Mean Corpuscular Volume 90.9 fL (80.0-94.0); Mean Platelet Volume 9.2 fL (7.4-10.4); Platelet Count 242 10^3/uL (130-400); Red Blood Cell Count 4.95 10^6/uL (4.70-6.10); Red Cell Dist. Width 13.7 % (11.5-14.5); White Blood Cell Count 12.2 10^3/uL (4.8-10.8)
[2023-04-30 07:58] LABS: Blood Urea Nitrogen 17 mg/dl (9-20); Calcium 8.8 mg/dl (8.4-10.2); Carbon Dioxide 30 mmol/L (22-30); Chloride 101 mmol/L (98-107); Estimated Creatinine Clearance 59 ml/min; Glucose 145 mg/dl (70-99); Potassium 3.9 mmol/L (3.5-5.1); Sodium 133 mmol/L (135-145); eGFR > 60.00
[2023-04-30] MEDS: MIRALAX 17 GRAMS PO ×2 (08:36→20:10)
[2023-04-30] MEDS: MAG-TAB SR 84 MG PO (08:36)
[2023-04-30] MEDS: LIPITOR 80 MG PO (08:37)
[2023-04-30] MEDS: OSCAL 500 + D 1000 MG PO (08:37)
[2023-04-30] MEDS: COLACE 100 MG PO ×2 (08:37→20:09)
[2023-04-30] MEDS: PLETAL 100 MG PO ×2 (08:37→20:10)
[2023-04-30] MEDS: DILANTIN 100 MG PO (08:37)
[2023-04-30] MEDS: NON-FORMULARY ITEM 1 MG PO (08:38)
[2023-04-30] MEDS: MYLICON 80 MG PO (08:44)
--- NOTE | 2023-04-30 10:45 | CM ---
Patient seen bedside, patient inquiring about observation status and asking CM to switch him to inpatient, CM explained CM does not have that capability. Patient reports there is nothing CM can do for him at this time, CM will continue to follow for
discharge planning needs.
Plan; home no needs anticipated.
--- NOTE | 2023-04-30 14:10 | W.PN.HOSP.TC ---
Today's Communication/Plan
-
unasyn
enemas, BM regimen
Assessment / Plan
Assessment / Plan
Pt is an 83yo M w/ PMH of HTN, HLD, PAD, Hypothyroidism, GERD, Prostate Cancer, and Seizure disorder is presenting to the ED c/o urinary retention and abdominal discomfort. The pt was seen at yesterday and treated for narcotic induced
constipation as well as urinary retention. He states that when he arrived home, his symptoms had mostly resolved after enema and straight catheterization yesterday, but as of this morning, his symptoms have returned. He states he has not ingested
much of anything since his return home. He admits to lower abdominal pain, chills and headache. Pt denies fever, diaphoresis, nausea. vomiting, low back pain, or saddle paraesthesias. Abdomen remains protuberant and tender with waves of cramping
abdominal pain that go away and has trouble having further bowel movements he has apparent urine retention is led to a urinary tract infection with many bacteria which will be treated empirically awaiting culture given the lack of results with
multiple enemas stool softeners and laxatives including MiraLAX twice daily which will be continued I would give the patient Relistor to counteract the narcotic effects of his prior dosing with codeine for his pain hydration will also be important
continued bladder scanning for retention if retention issues continue may benefit from the addition of tamsulosin but I believe is driven by the his ongoing constipation and should resolve once that is.
Persisting postvoid residual volumes are high in the face of continued constipation had Castro catheter inserted.
#Fecal impaction likely due to constipation from recent codeine use
-Continue milk of molasses enemas twice a day
- MiraLAX 1 capful twice a day
-still distended
-continue enemas today
-CT imaging with moderate fecal material throughout the colon that seems to have progressed from previous imaging in the past week
#Urinary Tract Infection with Urinary Retention
-Patient required straight cath yesterday and today
-Monitor bladder scans
-Cultures - E. Faecalis -
-switch to unasyn x 7 days- can dc on amoxicillin 500mg PO TID
Hyponatremia
-mild
-ctm
Peripheral Arterial Disease
-Continue aspirin and Pletal
Recent right hand fracture after fall
-Was treated with Tylenol with codeine which may have aggravated his initial presentation of constipation
-Did not have much response with narcotic antagonist yesterday
Essential Hypertension
-Continue irbesartan with hold parameters
Hyperlipidemia
-Continue atorvastatin
Seizure Disorder
-Continue phenytoin
Spinal Stenosis
-Continue gabapentin
Hypothyroidism
-Continue levothyroxine
Hx Prostate CA
-Continue finasteride and tamsulosin
-Indwelling Castro catheter/instigate void trial after relieving constipation
DVT Proph: HSQ
Code Status: Full Code
Anticipated Discharge: Within 24 hours
Subjective/Interval History
-
Date of Service: April 30, 2023
had multiple BMs last night, although still constipated and abdomen distended
Objective Data
-
Labs:
Laboratory Results
04/30/23
07:12
WBC 12.2 H
Hgb 15.4
Hct 45.0
Plt Count 242
Sodium 133 L
Potassium 3.9
Chloride 101
Carbon Dioxide 30
BUN 17
Creatinine 0.9
Glucose 145 H
Calcium 8.8
Vital Signs:
Vital Signs
Temp Pulse Resp BP Pulse Ox
98.4 F 104 18 120/75 96
04/30/23 07:00 04/30/23 07:00 04/30/23 07:00 04/30/23 07:00 04/30/23 08:10
I&O
04/29/23 04/30/23 05/01/23
06:59 06:59 06:59
Intake Total 960 / 960 480 / 480
Output Total 525 / 525 475 / 475
Balance 435 / 435 5 / 5
Review of Systems
-
History Source: Patient
Constitutional: Reports No Appetite
Respiratory: Reports No Symptoms
Cardiac: Reports No Symptoms
Abdomen/GI: Reports Constipated
Genitourinary: Reports Frequency and Hesitancy
Data Reviewed
-
Total Time Spent with Patient (in minutes): 56
CT Scan: Image personally visualized and interpreted and Report Reviewed by me
Labs: Labs Reviewed by me (Leukocytosis still trending up/urinalysis with apparent UTI/)
[2023-04-30] MEDS: UNASYN IV ×2 (14:22→20:07)
--- NOTE | 2023-04-30 14:43 | W.PN.GI.CBS2 ---
Today's Communication / Plan
-
-Fecal impaction likely due to constipation from recent codeine use
Patient had moderate amount of stool after the first milk of molasses enema
Refused rectal exam today
Continue milk of molasses enemas twice a day
Will also start MiraLAX 1 capful twice a day
Strongly encouraged to sit on the commode for 20 to 30 minutes to see if that will help get the residual stool in the rectum out.
Monitor bowel movements and once bowels are evacuated, can titrate MiraLAX dose based on his bowel movements.
Reports having colonoscopy couple of years ago at [place] with Dr. Xiao.
Will follow
Assessment / Plan
-
83-year-old male with history of hypertension, hypothyroidism, prostate cancer, recent hand surgery, put on Tylenol/codeine now presenting with fecal impaction/urinary retention, CT scan showing moderate stool in the colon, rectal exam showing fecal
impaction in the rectum status post disimpaction.
-Fecal impaction likely due to constipation from recent codeine use
Patient had moderate amount of stool after the first milk of molasses enema
Refused rectal exam today
Continue milk of molasses enemas twice a day
Will also start MiraLAX 1 capful twice a day
Strongly encouraged to sit on the commode for 20 to 30 minutes to see if that will help get the residual stool in the rectum out.
Monitor bowel movements and once bowels are evacuated, can titrate MiraLAX dose based on his bowel movements.
Reports having colonoscopy couple of years ago at [place] with Dr. Xiao.
Will follow
Subjective
Subjective
Date of Service: April 30, 2023
As per nursing staff, patient had moderate amount of stool last night and small amount of stool after enema today. Abdominal pain is improved but not completely better
Objective
Data Reviewed
Laboratory Data:
Laboratory Results
04/30/23 07:12
04/30/23 07:12
Laboratory Results
Magnesium 2.2 mg/dl (1.6-2.3) 04/29/23 05:43
Vital Signs and I&O:
Vital Signs
Temp Pulse Resp BP Pulse Ox
98.4 F 104 18 120/75 96
04/30/23 07:00 04/30/23 07:00 04/30/23 07:00 04/30/23 07:00 04/30/23 08:10
I&O
04/29/23 04/30/23 05/01/23
06:59 06:59 06:59
Intake Total 960 / 960 480 / 480
Output Total 525 / 525 475 / 475
Balance 435 / 435 5 / 5
Physical Exam
Physical Exam
GI: Soft and Distended
[2023-04-30 15:00] VITALS: BP 124/78
--- NOTE | 2023-04-30 15:00 | PTCARENOTE ---
Patient assisted to bedside commode. Sat for 20 minutes and passed a large amount of solid stool. Bright red blood was mixed with stool as well. Patient states he has hemorrhoids. Dr Bland made aware with no new orders. Will continue to monitor.
[2023-04-30] MEDS: STERILE WATER FOR INJECTION IV (16:33)
[2023-04-30] MEDS: FLOMAX 0.400000000000000022 MG PO (17:04)
[2023-04-30] MEDS: ASPIRIN 325 MG PO (17:04)
[2023-04-30] MEDS: AVAPRO 150 MG PO (17:04)
[2023-04-30] MEDS: NEURONTIN 600 MG PO (17:04)
[2023-04-30] MEDS: HEPARIN 5000 UNITS SC ×2 (17:04→23:50)
[2023-04-30] MEDS: DILANTIN 200 MG PO (20:09)
[2023-04-30] MEDS: OSCAL 500 + D 500 MG PO (20:10)
[2023-04-30 23:15] VITALS: BP 94/59
[2023-05-01] MEDS: UNASYN IV ×4 (01:52→20:57)
[2023-05-01 06:20] LABS: Hemoglobin 14.6 g/dL (13.0-18.0); Mean Corpuscular Volume 91.3 fL (80.0-94.0); Mean Platelet Volume 9.6 fL (7.4-10.4); Platelet Count 265 10^3/uL (130-400); Red Blood Cell Count 4.71 10^6/uL (4.70-6.10); Red Cell Dist. Width 13.7 % (11.5-14.5); White Blood Cell Count 11.7 10^3/uL (4.8-10.8)
[2023-05-01] MEDS: SYNTHROID 250 MCG PO (06:28)
[2023-05-01 06:35] LABS: Blood Urea Nitrogen 21 mg/dl (9-20); Calcium 9.4 mg/dl (8.4-10.2); Carbon Dioxide 31 mmol/L (22-30); Chloride 97 mmol/L (98-107); Estimated Creatinine Clearance 44 ml/min; Glucose 128 mg/dl (70-99); Magnesium 2.3 mg/dl (1.6-2.3); Potassium 3.6 mmol/L (3.5-5.1); Sodium 135 mmol/L (135-145); eGFR > 60.00
[2023-05-01 07:20] VITALS: BP 123/77
[2023-05-01] MEDS: LIPITOR 80 MG PO (09:52)
[2023-05-01] MEDS: PLETAL 100 MG PO ×2 (09:52→21:00)
[2023-05-01] MEDS: MAG-TAB SR 84 MG PO (09:52)
[2023-05-01] MEDS: MIRALAX 17 GRAMS PO ×2 (09:52→20:59)
[2023-05-01] MEDS: COLACE 100 MG PO ×2 (09:53→21:00)
[2023-05-01] MEDS: DILANTIN 200 MG PO ×2 (09:53→21:01)
[2023-05-01] MEDS: OSCAL 500 + D 1000 MG PO (09:53)
[2023-05-01] MEDS: NON-FORMULARY ITEM 1 MG PO (09:54)
[2023-05-01] MEDS: HEPARIN 5000 UNITS SC ×2 (09:54→15:04)
--- NOTE | 2023-05-01 11:13 | CM ---
Addendum entered by Bijal Banda 05/01/23 14:44:
Per nursing patient ambulated in hallway with nursing without difficulty.
Castro cath d/c.
Plan: home no needs.
Original Note:
Patient seen bedside.
Per patient he is going to ambulate in the halls later today and sit in the chair.
Per patient he may require home care needs, CM will continue to assess.
PT/OT evals (P).
Plan: home with possible needs.
--- NOTE | 2023-05-01 13:13 | W.PN.GI.CBS2 ---
Today's Communication / Plan
-
GI s/o
Assessment / Plan
-
83-year-old male with history of hypertension, hypothyroidism, prostate cancer, recent hand surgery, put on Tylenol/codeine now presenting with fecal impaction/urinary retention, CT scan showing moderate stool in the colon, rectal exam showing fecal
impaction in the rectum status post disimpaction.
Reports having colonoscopy couple of years ago at [facility] with Dr. Xiao.
Had large BMs yesterday after enemas. Having BMs today. Continue with bowel regimen. Will d/c enemas. Will s/o, call with questions.
Total Time Spent with Patient (in minutes): 35
Subjective
Subjective
Date of Service: May 01, 2023
Had large BMs o/n
Objective
Data Reviewed
Laboratory Data:
Laboratory Results
05/01/23 05:26
05/01/23 05:26
Laboratory Results
Magnesium 2.3 mg/dl (1.6-2.3) 05/01/23 05:26
Vital Signs and I&O:
Vital Signs
Temp Pulse Resp BP Pulse Ox
98.1 F 98 16 123/77 94
05/01/23 07:20 05/01/23 07:20 05/01/23 07:20 05/01/23 07:20 05/01/23 07:20
I&O
04/30/23 05/01/23 05/02/23
06:59 06:59 06:59
Intake Total 480 / 480 1440 / 1440
Output Total 475 / 475 500 / 500
Balance 940 / 940
--- NOTE | 2023-05-01 14:13 | W.PN.HOSP.TC ---
Today's Communication/Plan
-
dc today
miralax BID
avoid narcotic use
Assessment / Plan
Assessment / Plan
Pt is an 83yo M w/ PMH of HTN, HLD, PAD, Hypothyroidism, GERD, Prostate Cancer, and Seizure disorder is presenting to the ED c/o urinary retention and abdominal discomfort. The pt was seen at yesterday and treated for narcotic induced
constipation as well as urinary retention. He states that when he arrived home, his symptoms had mostly resolved after enema and straight catheterization yesterday, but as of this morning, his symptoms have returned. He states he has not ingested
much of anything since his return home. He admits to lower abdominal pain, chills and headache. Pt denies fever, diaphoresis, nausea. vomiting, low back pain, or saddle paraesthesias. Abdomen remains protuberant and tender with waves of cramping
abdominal pain that go away and has trouble having further bowel movements he has apparent urine retention is led to a urinary tract infection with many bacteria which will be treated empirically awaiting culture given the lack of results with
multiple enemas stool softeners and laxatives including MiraLAX twice daily which will be continued I would give the patient Relistor to counteract the narcotic effects of his prior dosing with codeine for his pain hydration will also be important
continued bladder scanning for retention if retention issues continue may benefit from the addition of tamsulosin but I believe is driven by the his ongoing constipation and should resolve once that is.
Persisting postvoid residual volumes are high in the face of continued constipation had Castro catheter inserted.
#Fecal impaction likely due to constipation from recent codeine use
-Continue milk of molasses enemas twice a day
- MiraLAX 1 capful twice a day
-still distended
-DC enema
--F/u GI outpatient
#Urinary Tract Infection with Urinary Retention
-Patient required straight cath yesterday and today
-Monitor bladder scans
-Cultures - E. Faecalis -
-switch to unasyn x 7 days- can dc on amoxicillin 500mg PO TID on dc to complete 7 days total
Hyponatremia
-mild
-ctm
-resolved
Peripheral Arterial Disease
-Continue aspirin and Pletal
Recent right hand fracture after fall
-Was treated with Tylenol with codeine which may have aggravated his initial presentation of constipation
-Did not have much response with narcotic antagonist yesterday
Essential Hypertension
-Continue irbesartan with hold parameters
Hyperlipidemia
-Continue atorvastatin
Seizure Disorder
-Continue phenytoin
Spinal Stenosis
-Continue gabapentin
Hypothyroidism
-Continue levothyroxine
Hx Prostate CA
-Continue finasteride and tamsulosin
-Indwelling Castro catheter/instigate void trial after relieving constipation
DVT Proph: HSQ
Code Status: Full Code
More than 30 minutes spent in discharge including
Final examination of the patient
Summarizing hospital stay
Instructions for continuing care to all relevant caregivers
Preparation of discharge records, prescriptions, and referral forms
Total time spent (35 in minutes):
Anticipated Discharge: Today
Subjective/Interval History
-
Date of Service: May 01, 2023
Patient having BMs
Objective Data
-
Labs:
Laboratory Results
05/01/23
05:26
WBC 11.7 H
Hgb 14.6
Hct 43.0
Plt Count 265
Sodium 135
Potassium 3.6
Chloride 97 L
Carbon Dioxide 31 H
BUN 21 H
Creatinine 1.2
Glucose 128 H
Calcium 9.4
Vital Signs:
Vital Signs
Temp Pulse Resp BP Pulse Ox
98.1 F 98 16 123/77 94
05/01/23 07:20 05/01/23 07:20 05/01/23 07:20 05/01/23 07:20 05/01/23 07:20
I&O
04/30/23 05/01/23 05/02/23
06:59 06:59 06:59
Intake Total 480 / 480 1440 / 1440
Output Total 475 / 475 500 / 500
Balance 940 / 940
Review of Systems
-
History Source: Patient
Constitutional: Reports No Appetite
Respiratory: Reports No Symptoms
Cardiac: Reports No Symptoms
Abdomen/GI: Reports Constipated
Genitourinary: Reports Frequency and Hesitancy
Physical Exam
-
General: Well Developed
HEENT: Normocephalic
Cardiac: Regular Rhythm
GI: Soft, Tender and Distended
Neuro: Awake, Alert, Oriented, AO x 3 and No Motor Deficits
Data Reviewed
-
Total Time Spent with Patient (in minutes): 56
CT Scan: Image personally visualized and interpreted and Report Reviewed by me
Labs: Labs Reviewed by me (Leukocytosis still trending up/urinalysis with apparent UTI/)
--- NOTE | 2023-05-01 14:31 | W.DS.TRANS ---
DC Summary - [facility]
-
Discharge Instructions:
Discharge Diagnosis/Procedures constipation
Diet Low Fat,Low Cholesterol
Activity As tolerated
Instructions:
Stand-Alone Forms:
Changes to Home Medications: Yes
Discharge Medications:
DC Medications w/original date entered in [employer]
irbesartan 150 mg tablet 150 mg PO QPM Blood Pressure 09/10/14
levothyroxine 125 mcg tablet 250 mcg PO MOTUWETHFR@07 Thyroid 09/10/14
phenytoin sodium extended 100 mg capsule 100 mg PO Q48H@0800 09/10/14
gabapentin 600 mg tablet 600 mg PO QPM Pain 06/07/15
calcium carbonate 600 mg-vitamin D3 10 mcg (400 unit) tablet (Calcium 600 + D(3)) 1 tab PO HS Supplement 06/25/15
calcium carbonate 600 mg-vitamin D3 10 mcg (400 unit) tablet (Calcium 600 + D(3)) 2 tab PO DAILY Supplement 06/25/15
garlic 1,000 mg capsule 1,000 mg PO DAILY Supplement 06/25/15
phenytoin sodium extended 100 mg capsule 200 mg PO HS 06/25/15
cilostazol 100 mg tablet 100 mg PO BID VASCULAR DISEASE 10/27/22
aspirin 325 mg tablet 325 mg PO QPM Pain 04/18/23
atorvastatin 80 mg tablet 80 mg PO DAILY High Cholesterol 04/18/23
finasteride 1 mg tablet 1 mg PO DAILY Urinary Issue 04/18/23
levothyroxine 125 mcg tablet 125 mcg PO SUSA@07 Thyroid 04/18/23
magnesium oxide 400 mg PO DAILY Supplement 04/18/23
phenytoin sodium extended 100 mg capsule 200 mg PO Q48H@0800 04/18/23
tamsulosin 0.4 mg capsule 0.4 mg PO QPM 04/18/23
therapeutic multivitamin 1 tab PO DAILY 04/18/23
bisacodyl 5 mg tablet,delayed release (Dulcolax (bisacodyl)) 10 mg PO DAILYPRN PRN CONSTIPATION 04/28/23
amoxicillin 500 mg-potassium clavulanate 125 mg tablet (Augmentin) 1 tab PO TID 6 days #18 tabs 05/01/23
docusate sodium 100 mg capsule 100 mg PO BID #60 caps 05/01/23
polyethylene glycol 3350 17 gram oral powder packet (HealthyLax) 17 g PO BID PRN Constipation #100 ea 05/01/23
simethicone 80 mg chewable tablet 80 mg PO TIDPRN PRN abdominal distension #90 tabs 05/01/23
Home Medication Changes
amoxicillin 500 mg-potassium clavulanate 125 mg tablet (Augmentin) 1 tab PO TID 6 days #18 tabs 05/01/23
docusate sodium 100 mg capsule 100 mg PO BID #60 caps 05/01/23
polyethylene glycol 3350 17 gram oral powder packet (HealthyLax) 17 g PO BID PRN Constipation #100 ea 05/01/23
simethicone 80 mg chewable tablet 80 mg PO TIDPRN PRN abdominal distension #90 tabs 05/01/23
Pending Results: No
[2023-05-01 15:15] VITALS: BP 138/71
[2023-05-01] MEDS: STERILE WATER FOR INJECTION IV (17:13)
[2023-05-01] MEDS: ASPIRIN 325 MG PO (17:48)
[2023-05-01] MEDS: NEURONTIN 600 MG PO (17:48)
[2023-05-01] MEDS: AVAPRO 150 MG PO (17:48)
[2023-05-01] MEDS: FLOMAX 0.400000000000000022 MG PO (17:48)
[2023-05-01] MEDS: OSCAL 500 + D 500 MG PO (21:00)
[2023-05-01 23:25] VITALS: BP 91/48
[2023-05-02] MEDS: HEPARIN 5000 UNITS SC ×2 (00:14→08:48)
[2023-05-02] MEDS: UNASYN IV ×3 (02:58→13:25)
[2023-05-02 05:07] VITALS: BP 122/68
[2023-05-02] MEDS: SYNTHROID 250 MCG PO (06:19)
[2023-05-02 07:30] VITALS: BP 136/65
[2023-05-02 07:51] LABS: Hematocrit 40.5 % (39.0-52.0); Mean Corp Hgb Conc. 34.6 g/dL (33.0-37.0); Mean Corpuscular Hgb 31.1 pg (27.0-31.0); Mean Platelet Volume 9.4 fL (7.4-10.4); Platelet Count 276 10^3/uL (130-400); Red Cell Dist. Width 13.4 % (11.5-14.5); White Blood Cell Count 11.9 10^3/uL (4.8-10.8)
[2023-05-02 08:18] LABS: Blood Urea Nitrogen 22 mg/dl (9-20); Calcium 9.1 mg/dl (8.4-10.2); Carbon Dioxide 27 mmol/L (22-30); Chloride 96 mmol/L (98-107); Estimated Creatinine Clearance 53 ml/min; Glucose 134 mg/dl (70-99); Potassium 3.2 mmol/L (3.5-5.1); Sodium 131 mmol/L (135-145); eGFR > 60.00
[2023-05-02] MEDS: MAG-TAB SR 84 MG PO (08:47)
[2023-05-02] MEDS: LIPITOR 80 MG PO (08:47)
[2023-05-02] MEDS: OSCAL 500 + D 1000 MG PO (08:47)
[2023-05-02] MEDS: DILANTIN 100 MG PO (08:47)
[2023-05-02] MEDS: COLACE 100 MG PO (08:48)
[2023-05-02] MEDS: MIRALAX 17 GRAMS PO (08:48)
[2023-05-02] MEDS: NON-FORMULARY ITEM 1 MG PO (08:48)
[2023-05-02] MEDS: PLETAL 100 MG PO (08:48)
[2023-05-02] MEDS: KCL ELIXIR 40 MEQ PO (10:10)
[2023-05-02] MEDS: LR 1000 IV (10:12)
[2023-05-02 12:47] LABS: Blood Urea Nitrogen 19 mg/dl (9-20); Carbon Dioxide 28 mmol/L (22-30); Chloride 100 mmol/L (98-107); Estimated Creatinine Clearance 59 ml/min; Glucose 128 mg/dl (70-99); Potassium 4.2 mmol/L (3.5-5.1); Sodium 131 mmol/L (135-145); eGFR > 60.00
--- NOTE | 2023-05-02 12:49 | W.PN.HOSP.TC ---
Addendum entered and electronically signed by Connor Akins MD 05/03/23 15:41:
[id number]
Original Note:
Today's Communication/Plan
-
dc today
miralax BID prn
continue augmentin course for uti
avoid narcotic use
Assessment / Plan
Assessment / Plan
Pt is an 83yo M w/ PMH of HTN, HLD, PAD, Hypothyroidism, GERD, Prostate Cancer, and Seizure disorder is presenting to the ED c/o urinary retention and abdominal discomfort. The pt was seen at yesterday and treated for narcotic induced
constipation as well as urinary retention. He states that when he arrived home, his symptoms had mostly resolved after enema and straight catheterization yesterday, but as of this morning, his symptoms have returned. He states he has not ingested
much of anything since his return home. He admits to lower abdominal pain, chills and headache. Pt denies fever, diaphoresis, nausea. vomiting, low back pain, or saddle paraesthesias. Abdomen remains protuberant and tender with waves of cramping
abdominal pain that go away and has trouble having further bowel movements he has apparent urine retention is led to a urinary tract infection with many bacteria which will be treated empirically awaiting culture given the lack of results with
multiple enemas stool softeners and laxatives including MiraLAX twice daily which will be continued I would give the patient Relistor to counteract the narcotic effects of his prior dosing with codeine for his pain hydration will also be important
continued bladder scanning for retention if retention issues continue may benefit from the addition of tamsulosin but I believe is driven by the his ongoing constipation and should resolve once that is.
Persisting postvoid residual volumes are high in the face of continued constipation had Castro catheter inserted.
#Fecal impaction likely due to constipation from recent codeine use
-s/p milk of molasses enemas twice a day
- MiraLAX 1 capful twice a day prn
-distension improved
-DC enema
--F/u GI outpatient
#Urinary Tract Infection with Urinary Retention
-Patient required straight cath yesterday and today
-Monitor bladder scans
-Cultures - E. Faecalis -
-switch to unasyn x 7 days- can dc on amoxicillin 500mg PO TID on dc to complete 7 days total
Hyponatremia
-mild
-f/u bmp outpatient
Peripheral Arterial Disease
-Continue aspirin and Pletal
Recent right hand fracture after fall
-Was treated with Tylenol with codeine which may have aggravated his initial presentation of constipation
-Did not have much response with narcotic antagonist yesterday
-avoid narcotics
Essential Hypertension
-Continue irbesartan with hold parameters
Hyperlipidemia
-Continue atorvastatin
Seizure Disorder
-Continue phenytoin
Spinal Stenosis
-Continue gabapentin
Hypothyroidism
-Continue levothyroxine
Hx Prostate CA
-Continue finasteride and tamsulosin
-passed TOV
DVT Proph: HSQ
Code Status: Full Code
More than 30 minutes spent in discharge including
Final examination of the patient
Summarizing hospital stay
Instructions for continuing care to all relevant caregivers
Preparation of discharge records, prescriptions, and referral forms
Total time spent (35 in minutes):
Anticipated Discharge: Today
Subjective/Interval History
-
Date of Service: May 02, 2023
feels much better today, distension improved.
Objective Data
-
Labs:
Laboratory Results
05/02/23 05/02/23
07:05 12:16
WBC 11.9 H
Hgb 14.0
Hct 40.5
Plt Count 276
Sodium 131 L 131 L
Potassium 3.2 L 4.2 D
Chloride 96 L 100
Carbon Dioxide 27 28
BUN 22 H 19
Creatinine 1.0 0.9
Glucose 134 H 128 H
Calcium 9.1 9.0
Vital Signs:
Vital Signs
Temp Pulse Resp BP Pulse Ox
97.9 F 100 18 136/65 93
05/02/23 07:30 05/02/23 07:30 05/02/23 07:30 05/02/23 07:30 05/02/23 10:46
I&O
05/01/23 05/02/23 05/03/23
06:59 06:59 06:59
Intake Total 1440 / 1440 480 / 480
Output Total 500 / 500 375 / 375
Balance 940 / 940 105 / 105
Review of Systems
-
History Source: Patient
Constitutional: Reports No Appetite
Respiratory: Reports No Symptoms
Cardiac: Reports No Symptoms
Abdomen/GI: Reports Constipated
Genitourinary: Reports Frequency and Hesitancy
Physical Exam
-
General: Well Developed
HEENT: Normocephalic
Cardiac: Regular Rhythm
GI: Soft, Tender and Distended
Neuro: Awake, Alert, Oriented, AO x 3 and No Motor Deficits
Data Reviewed
-
Total Time Spent with Patient (in minutes): 56
CT Scan: Image personally visualized and interpreted and Report Reviewed by me
Labs: Labs Reviewed by me
--- NOTE | 2023-05-02 12:52 | W.DS.TRANS ---
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
-
Discharge Instructions:
Discharge Diagnosis/Procedures constipation
Diet Low Fat,Low Cholesterol
Activity As tolerated
Blood Work bmp in 3-5 days - f/u Na and K with pcp
Instructions:
Stand-Alone Forms:
Changes to Home Medications: Yes
Discharge Medications:
DC Medications w/original date entered in [employer]
irbesartan 150 mg tablet 150 mg PO QPM Blood Pressure 09/10/14
levothyroxine 125 mcg tablet 250 mcg PO MOTUWETHFR@07 Thyroid 09/10/14
phenytoin sodium extended 100 mg capsule 100 mg PO Q48H@0800 09/10/14
gabapentin 600 mg tablet 600 mg PO QPM Pain 06/07/15
calcium carbonate 600 mg-vitamin D3 10 mcg (400 unit) tablet (Calcium 600 + D(3)) 1 tab PO HS Supplement 06/25/15
calcium carbonate 600 mg-vitamin D3 10 mcg (400 unit) tablet (Calcium 600 + D(3)) 2 tab PO DAILY Supplement 06/25/15
garlic 1,000 mg capsule 1,000 mg PO DAILY Supplement 06/25/15
phenytoin sodium extended 100 mg capsule 200 mg PO HS 06/25/15
cilostazol 100 mg tablet 100 mg PO BID VASCULAR DISEASE 10/27/22
aspirin 325 mg tablet 325 mg PO QPM Pain 04/18/23
atorvastatin 80 mg tablet 80 mg PO DAILY High Cholesterol 04/18/23
finasteride 1 mg tablet 1 mg PO DAILY Urinary Issue 04/18/23
levothyroxine 125 mcg tablet 125 mcg PO SUSA@07 Thyroid 04/18/23
magnesium oxide 400 mg PO DAILY Supplement 04/18/23
phenytoin sodium extended 100 mg capsule 200 mg PO Q48H@0800 04/18/23
tamsulosin 0.4 mg capsule 0.4 mg PO QPM 04/18/23
therapeutic multivitamin 1 tab PO DAILY 04/18/23
bisacodyl 5 mg tablet,delayed release (Dulcolax (bisacodyl)) 10 mg PO DAILYPRN PRN CONSTIPATION 04/28/23
amoxicillin 500 mg-potassium clavulanate 125 mg tablet (Augmentin) 1 tab PO TID 6 days #18 tabs 05/01/23
docusate sodium 100 mg capsule 100 mg PO BID #60 caps 05/01/23
polyethylene glycol 3350 17 gram oral powder packet (HealthyLax) 17 g PO BID PRN Constipation #100 ea 05/01/23
simethicone 80 mg chewable tablet 80 mg PO TIDPRN PRN abdominal distension #90 tabs 05/01/23
Home Medication Changes
amoxicillin 500 mg-potassium clavulanate 125 mg tablet (Augmentin) 1 tab PO TID 6 days #18 tabs 05/01/23
docusate sodium 100 mg capsule 100 mg PO BID #60 caps 05/01/23
polyethylene glycol 3350 17 gram oral powder packet (HealthyLax) 17 g PO BID PRN Constipation #100 ea 05/01/23
simethicone 80 mg chewable tablet 80 mg PO TIDPRN PRN abdominal distension #90 tabs 05/01/23
Pending Results: No
--- NOTE | 2023-05-02 16:43 | CM ---
CM following re: d/c planning
Chart reviewed
Pt is medically stable for d/c
CM placed a home care referral at the recommendation of the patient's RN
CM placed a referral via care port to [facility] and was accepted
Pt remains observation and [facility] letter provided by previous CM
PLAN; d/c home with [facility]
== END 2023-05-02 15:46 | disposition home health service (06) ==
LOC: 4 EAST ACU 18:59
PROVIDERS: Nurse Practitioner Family; Nurse Practitioner Gerontology; Physician Assistant Medical; ADMITTING PHYSICIAN Internal Medicine; ATTENDING PHYSICIAN Internal Medicine; CONSULT PHYSICIAN Internal Medicine Gastroenterology; EMERGENCY PHYSICIAN Emergency Medicine; FAMILY PHYSICIAN Family Medicine
DX: K59.03 Drug induced constipation (principal); T40.2X5A Adverse effect of other opioids, initial encounter; N39.0 Urinary tract infection, site not specified; R33.9 Retention of urine, unspecified; N20.0 Calculus of kidney; R10.32 Left lower quadrant pain; B95.2 Enterococcus as the cause of diseases classified elsewhere; R31.9 Hematuria, unspecified; Y92.9 Unspecified place or not applicable; E78.5 Hyperlipidemia, unspecified; I10 Essential (primary) hypertension; E87.1 Hypo-osmolality and hyponatremia; E03.9 Hypothyroidism, unspecified; K21.9 Gastro-esophageal reflux disease without esophagitis; I73.9 Peripheral vascular disease, unspecified; G40.909 Epilepsy, unspecified, not intractable, without status epilepticus; M48.00 Spinal stenosis, site unspecified; N40.0 Benign prostatic hyperplasia without lower urinary tract symptoms; S62.91XD Unspecified fracture of right hand, subsequent encounter for fracture with routine healing; W19.XXXD Unspecified fall, subsequent encounter; R51.9 Headache, unspecified; D72.829 Elevated white blood cell count, unspecified; E78.00 Pure hypercholesterolemia, unspecified; M48.54XA Collapsed vertebra, not elsewhere classified, thoracic region, initial encounter for fracture; N28.1 Cyst of kidney, acquired; K57.90 Diverticulosis of intestine, part unspecified, without perforation or abscess without bleeding; Z85.46 Personal history of malignant neoplasm of prostate; Z88.8 Allergy status to other drugs, medicaments and biological substances; Z79.02 Long term (current) use of antithrombotics/antiplatelets; Z79.890 Hormone replacement therapy; Z79.82 Long term (current) use of aspirin; Z86.010 Personal history of colon polyps
CPT/HCPCS: 51798; 74176; 80048; 80185; 81003; 81015; 83735; 84443; 85027; 87077; 87086; 87147; 87186; 96361; 96374; 99285; G0378

== ENCOUNTER → 2023-05-18 06:14 | Outpatient (REF) | payer OTHER, SELFPAY ==
[2023-05-18 11:10] LABS: % Basophils 1.1 % (0-2); % Eosinophils 4.8 % (0-6); % Immature Granulocytes 0.6 % (0-0.5); % Lymphocytes 20.1 % (20.5-51.1); % Monocytes 11.2 % (1.7-9.3); % Neutrophils 62.2 % (42.2-75.2); ALT (SGPT) 66 U/L (0-50); AST (SGOT) 42 U/L (17-59); Absolute Basophils 0.1 10^3/uL (0-0.2); Absolute Eosinophils 0.4 10^3/uL (0-0.7); Absolute Immature Granulocytes 0.1 10^3/uL (0-0.05); Absolute Lymphocytes 1.6 10^3/uL (1.2-3.4); Absolute Monocytes 0.9 10^3/uL (0.1-0.6); Absolute Neutrophils 4.9 10^3/uL (1.4-6.5); Albumin 3.5 g/dl (3.5-5.0); Alkaline Phosphatase 165 U/L (38-126); Blood Urea Nitrogen 21 mg/dl (9-20); Calcium 9.9 mg/dl (8.4-10.2); Carbon Dioxide 33 mmol/L (22-30); Chloride 103 mmol/L (98-107); Glucose 114 mg/dl (70-99); HDL Cholesterol 74 mg/dl; Hematocrit 45.1 % (39.0-52.0); Hemoglobin 14.9 g/dL (13.0-18.0); LDL Cholesterol, Calculated 69 mg/dl; Mean Corpuscular Hgb 30.9 pg (27.0-31.0); Mean Corpuscular Volume 93.6 fL (80.0-94.0); Mean Platelet Volume 9.5 fL (7.4-10.4); Nucleated Red Blood Cells % 0 % (-); Platelet Count 281 10^3/uL (130-400); Potassium 4.8 mmol/L (3.5-5.1); Red Blood Cell Count 4.82 10^6/uL (4.70-6.10); Sodium 140 mmol/L (135-145); Total Bilirubin 0.4 mg/dl (0.2-1.3); Total Cholesterol 167 mg/dl (50-199); Total Protein 6.5 g/dl (6.3-8.2); Triglyceride 124 mg/dl (10-149); Very Low Density Lipoprotein 24 mg/dl (0-30); White Blood Cell Count 7.9 10^3/uL (4.8-10.8); eGFR > 60.00
[2023-05-18 11:30] LABS: Dilantin 8.7 ug/ml (10-20)
[2023-05-18 11:37] LABS: TSH Reflex To Free T4 1.29 uIU/ml (0.47-4.68)
== END ==
LOC: HWLAB 06:14
PROVIDERS: ATTENDING PHYSICIAN Family Medicine
DX: I10 Essential (primary) hypertension (principal); G40.909 Epilepsy, unspecified, not intractable, without status epilepticus; E03.9 Hypothyroidism, unspecified; E78.00 Pure hypercholesterolemia, unspecified; I73.9 Peripheral vascular disease, unspecified; C61 Malignant neoplasm of prostate
CPT/HCPCS: 36415; 80053; 80061; 80185; 84443; 85025

== ENCOUNTER → 2023-06-06 09:57 | Outpatient (REF) | payer OTHER, SELFPAY | LOC: HWLAB 09:57 | PROVIDERS: ATTENDING PHYSICIAN Family Medicine | DX: E78.00 Pure hypercholesterolemia, unspecified (principal); G40.909 Epilepsy, unspecified, not intractable, without status epilepticus; I10 Essential (primary) hypertension; C61 Malignant neoplasm of prostate; E03.9 Hypothyroidism, unspecified; I73.9 Peripheral vascular disease, unspecified | CPT/HCPCS: 36415; 80185 ==

== ENCOUNTER 2023-07-16 10:31 | Inpatient (IN) | payer OTHER, SELFPAY ==
[2023-07-13 08:33] VITALS: BP 142/85
[2023-07-13 09:28] LABS: % Basophils 0.3 % (0-2); % Eosinophils 1.9 % (0-6); % Immature Granulocytes 0.4 % (0-0.5); % Lymphocytes 9.7 % (20.5-51.1); % Monocytes 12.5 % (1.7-9.3); % Neutrophils 75.2 % (42.2-75.2); Absolute Eosinophils 0.2 10^3/uL (0-0.7); Absolute Immature Granulocytes 0.1 10^3/uL (0-0.05); Absolute Lymphocytes 1.3 10^3/uL (1.2-3.4); Absolute Monocytes 1.6 10^3/uL (0.1-0.6); Absolute Neutrophils 9.8 10^3/uL (1.4-6.5); Hematocrit 46.8 % (39.0-52.0); Hemoglobin 15.6 g/dL (13.0-18.0); Mean Corp Hgb Conc. 33.3 g/dL (33.0-37.0); Mean Corpuscular Hgb 31.2 pg (27.0-31.0); Mean Corpuscular Volume 93.6 fL (80.0-94.0); Mean Platelet Volume 9.6 fL (7.4-10.4); Nucleated Red Blood Cells % 0 % (-); Platelet Count 177 10^3/uL (130-400)
--- NOTE | 2023-07-13 09:39 | CON.VAS ---
Consultation
Consultation Request
Performing Provider: Matthew
Reason for Consultation: Right right thigh pain
Medical History
-
Chief Complaint: Right thigh pain
History of Present Illness:
83-year-old male presenting to the ER with right thigh tightness/pain. Patient states he started with right thigh tightness about 2 days ago, pain worsened in intensity overnight which led to this ER visit. Patient denies calf pain, foot pain,
numbness, tingling, decreased motor or sensation in the right foot. Patient had a right femoral to distal pop bypass with vein with Dr. Nava in 2016. Patient started following with Dr. Ribeiro last year and most recently saw him in the office in
January, at that time his noninvasive studies were at his baseline. Patient no complaints at that time.
Patient states he was recently taken off his aspirin and Pletal for a prostate biopsy about a week and a half ago but restarted them this past Sunday.
Patient seen at bedside this a.m. in the ER with Dr. Castro. Patient has palpable bilateral femoral pulses, palpable popliteal and DP pulses. Doppler signals to the right DP and PT. bilaterally feet are slightly cool, pink with <2 cap refill. No
wounds or open sores noted. Denies pain in the calves and feet. Denies claudication, denies pain with walking. Does admit his thigh is so painful that he cannot currently walk.
Past Medical History
Past Medical History: Cancer, GERD, HTN, Hypothyroidism, Seizures and Other (PAD)
Past Surgical History: Appendectomy, Orthopedic (knee x 3) and Other (R fem-pop bypass)
Social History
Tobacco: Non-Smoker
Alcohol: Daily (1 beer)
Family History
Family History: Reviewed & Not Pertinent
Allergies / Home Medications
Allergy/AdvReac Type Severity Reaction Status Date / Time
clopidogrel bisulfate Allergy Unknown Verified 07/13/23 08:35
[From Plavix]
codeine Allergy constipatio Verified 07/13/23 08:35
n
levetiracetam [From Keppra] Allergy Unknown Verified 07/13/23 08:35
lisinopril Allergy 'tickling Verified 07/13/23 08:35
cough'
�Medication �Instructions �Recorded �Confirmed �Type
irbesartan 150 mg tablet 150 mg PO HS Blood Pressure 09/10/14 07/13/23 History
levothyroxine 125 mcg tablet 250 mcg PO MOTUWETHFR@0800 Thyroid 09/10/14 07/13/23 History
phenytoin sodium extended 100 mg 100 - 200 mg PO .SEE BELOW 09/10/14 07/13/23 History
capsule
gabapentin 600 mg tablet 600 mg PO HS Pain 06/07/15 07/13/23 History
garlic 1,000 mg capsule 1,000 mg PO DAILY Supplement 06/25/15 07/13/23 History
phenytoin sodium extended 100 mg 200 mg PO HS 06/25/15 07/13/23 History
capsule
cilostazol 100 mg tablet 100 mg PO BID VASCULAR DISEASE 10/27/22 07/13/23 History
aspirin 325 mg tablet 325 mg PO HS Pain 04/18/23 07/13/23 History
atorvastatin 80 mg tablet 80 mg PO HS High Cholesterol 04/18/23 07/13/23 History
finasteride 1 mg tablet 1 mg PO DAILY Urinary Issue 04/18/23 07/13/23 History
levothyroxine 125 mcg tablet 125 mcg PO SUSA@0800 Thyroid 04/18/23 07/13/23 History
magnesium oxide 400 mg PO DAILY Supplement 04/18/23 07/13/23 History
therapeutic multivitamin 1 tab PO DAILY 04/18/23 07/13/23 History
calcium carbonate 600 mg-vitamin 1 tab PO DAILY 07/13/23 07/13/23 History
D3 20 mcg (800 unit) tablet
(Caltrate with Vitamin D3)
calcium carbonate 600 mg-vitamin 2 tab PO HS 07/13/23 07/13/23 History
D3 20 mcg (800 unit) tablet
(Caltrate with Vitamin D3)
Review of Systems
-
History Source: Patient
All other systems: Negative unless noted
Constitutional: Reports No Symptoms
EENT: Reports No Symptoms
Respiratory: Reports No Symptoms
Cardiac: Reports No Symptoms
Vascular: Denies Leg Pain / Claudication (thigh pain), Numbness or Tingling
Abdomen/GI: Reports No Symptoms
: Reports No Symptoms
Musculoskeletal: Reports Muscle Pain
Skin: Reports No Symptoms
Neurological: Reports No Symptoms
Endocrine: Reports No Symptoms
Physical Exam
Vital Signs
Temp Pulse Resp BP Pulse Ox
97.8 F 91 20 142/85 98
07/13/23 08:33 07/13/23 08:33 07/13/23 08:33 07/13/23 08:33 07/13/23 09:14
Lab Results
07/13/23 09:06
Physical Exam
General: No Apparent Distress
HEENT: Normocephalic and Atraumatic
Respiratory: Non Labored Respirations
Cardiac: Negative JVD
GI: Soft, Non Tender and Non Distended
Musculoskeletal: No Clubbing, No Cyanosis and No Edema
Skin: Warm
Neuro: Awake, Alert and Oriented
Psych: Calm
Pulses: Bilateral Femoral: +2, Left Popliteal: +2, Left Dorsalis Pedis: +1, Right Dorsalis Pedis: Doppler, Left Posterior Tibial: +1 and Right Posterior Tibial: Doppler
Assessment / Plan
-
83-year-old male presenting to the ER for right thigh tightness/pain. History of right femoropopliteal bypass in 2016.
Plan:
-Lower extremity arterial ultrasound/JUNIOR/TBI
-Will follow-up with the patient once study completed to make plan
[2023-07-13 09:42] LABS: ALT (SGPT) 65 U/L (0-50); AST (SGOT) 44 U/L (17-59); Alkaline Phosphatase 166 U/L (38-126); Blood Urea Nitrogen 17 mg/dl (9-20); Calcium 10.1 mg/dl (8.4-10.2); Carbon Dioxide 34 mmol/L (22-30); Chloride 102 mmol/L (98-107); Glucose 111 mg/dl (70-99); Potassium 4.8 mmol/L (3.5-5.1); Sodium 136 mmol/L (135-145); Total Bilirubin 0.4 mg/dl (0.2-1.3); Total Protein 6.7 g/dl (6.3-8.2); eGFR > 60.00
[2023-07-13 09:44] LABS: APTT 34.2 Sec (23.4-35.0)
[2023-07-13] MEDS: TYLENOL 1000 MG PO ×2 (13:10→21:32)
--- NOTE | 2023-07-13 13:42 | ED.GENMED ---
History of Present Illness
General
Chief Complaint: DVT/Possible Blood Clot
Source: patient
Time Seen by Provider: 07/13/23 08:39
Travel History
Have you had any contact with someone who has COVID-19?: No
Do you have any symptoms of coronavirus? Fever > 100 degrees, chills, cough, shortness of breath, sore throat, loss of taste or smell, muscle aches, or headache?: No
History of Present Illness
History of Present Illness:
83-year-old male presents complaining of right thigh pain onset yesterday getting worse overnight. There is no injury. There is pain at rest. He follows with vascular surgery. He has a history of femoral artery bypass on the right leg. He notes
rest pain but denies numbness to his foot. He is on aspirin and cilostazol. He stopped his antiplatelet agents. 1 week prior to procedure he had 4 days ago. He had a prostate biopsy. The day after the biopsy he started the antiplatelet agents
again. No chest pain or shortness of breath.
Past History
Past History
ED Past Medical History: Cancer (Prostate cancer) and Seizures
ED Past Surgical History: Appendectomy, Orthopedic and Other
Social History
Tobacco: Non-smoker
Personal:
Living: with family
Employment: Retired
Phy Exam
Physical Exam
Physical Exam:
General: Well-appearing male no acute respiratory distress HEENT: Normocephalic atraumatic neck is supple
Heart: Regular rate and rhythm no murmurs
Lungs: Clear to auscultation bilaterally no wheezing
Musculoskeletal exam: Tenderness is noted to the anterior right thigh. Compartments are soft vascular:
Dopplerable pulse to the dorsal aspect of the right foot. Palpable pulse left foot. The right leg is warm to the touch
Skin is warm no rash or lesion
Neurologic: Good sensation bilateral lower extremities
Course
Orders/Labs/Results
Orders:
Orders
07/13/23 09:06
Complete Blood Count/With Diff Urgent
Comprehensive Metabolic Panel Urgent
PTT Urgent
Prothrombin Time Urgent
07/13/23 09:35
Peripheral Arterial US [US Periph Art LOWER Ext w JUNIOR] Urgent
Comment:
Reason For Exam: Right thigh pain, s/p R bypass 2016
07/13/23 12:52
Acetaminophen [Tylenol] 1,000 mg PO NOW STA
07/13/23 13:24
Dexamethasone Sod Phosphate [Decadron] 10 mg IV NOW STA
Ketorolac [Toradol] 15 mg IV NOW STA
07/13/23 13:41
PT Consult [Pt Eval And Treat] Urgent
Activity Level: Ambulate
Abnormal Lab Results
07/13/23
09:06
WBC 13.0 H 10^3/uL
(4.8-10.8)
MCH 31.2 H pg
(27.0-31.0)
Abs Immat Gran (auto) 0.1 H 10^3/uL
(0-0.05)
Absolute Neuts (auto) 9.8 H 10^3/uL
(1.4-6.5)
Absolute Monos (auto) 1.6 H 10^3/uL
(0.1-0.6)
Lymphocytes % 9.7 L %
(20.5-51.1)
Monocytes % 12.5 H %
(1.7-9.3)
Carbon Dioxide 34 H mmol/L
(22-30)
Glucose 111 H mg/dl
(70-99)
ALT 65 H U/L
(0-50)
Alkaline Phosphatase 166 H U/L
(38-126)
07/13/23 09:06
07/13/23 09:06
Vital Signs
Initial and Last Documented VS:
Initial Vital Signs
Temp Pulse Resp BP Pulse Ox
97.8 F 91 20 142/85 98
07/13/23 08:33 07/13/23 08:33 07/13/23 08:33 07/13/23 08:33 07/13/23 08:33
Last Documented Vital Signs
Temp Pulse Resp BP Pulse Ox
98.2 F 83 16 128/73 98
07/13/23 14:05 07/13/23 14:05 07/13/23 14:05 07/13/23 14:05 07/13/23 14:05
MDM/Problems Addressed
Differential Diagnosis Includes:
Thigh pain at rest. Consider vascular arterial insufficiency versus radiculopathy. No signs of cellulitis or compartment syndrome
Consulted vascular surgery for their input. They recommended arterial duplex ultrasound was performed and shows no decreased flow. Things are stable from an arterial standpoint.
Question radiculopathy as source of pain. Patient is on gabapentin 600 mg. Will add Decadron and Toradol to his symptom relief regimen today. Physical therapy consult pending to evaluate for safety upon discharge. He lives by himself.
*Critical Care Note
Total Time (30-74mins, 75-104mins- exclusive of procedures): Not Applicable
Update Note
Update Note:
Patient evaluated by vascular surgery. There is no acute vascular abnormality on arterial ultrasound. Patient reexamined. Pain in right thigh does radiate to the back slightly. Question possible radicular pain. No signs of cellulitis. Patient
evaluated by physical therapy after given Decadron Toradol and Tylenol. He is unable to ambulate safely with a walker. He lives by himself. Unsafe for discharge. Case management made aware however unlikely to be placed on a Sunday afternoon.
Will admit to hospital for pain control and further evaluation
ED Attending Note
-
Portions of this chart may have been created with voice recognition software.� Occasional wrong word or��sound alike� substitutions may have occurred due to the inherent limitations of voice recognition software.
Discharge Plan
Departure
Patient Disposition: Admit
Date of Disposition: 04/26/24
Time of Disposition: 15:06
Admit to: Med/Surg
Presentation/result/management discussed w/ accepting MD/DO: Hospitalist
Discharge Problem:
Radiculopathy
Prescriptions:
No Action
phenytoin sodium extended 100 MG capsule
100 - 200 mg PO .SEE BELOW
Patient Comments:
07/13/2023, per pt.,
Day 1: 100 mg (AM)
Day 2: 200 mg (AM)
Day 3: 200 mg (AM)
Day 4: 100 mg (AM)
Day 5: 200 mg (AM)
Day 6: 200 mg (AM)
Day 7: 100 mg (AM)
levothyroxine 125 MCG tablet
250 mcg PO MOTUWETHFR@0800
irbesartan 150 MG tablet
150 mg PO HS
gabapentin 600 MG tablet
600 mg PO HS
phenytoin sodium extended 100 MG capsule
200 mg PO HS
garlic 1,000 MG capsule
1,000 mg PO DAILY
cilostazol 100 mg Tablet
100 mg PO BID
atorvastatin 80 mg Tablet
80 mg PO HS
aspirin 325 mg Tablet
325 mg PO HS
therapeutic multivitamin Tablet
1 tab PO DAILY
Patient Comments:
07/13/2023, without Iron per pt.
levothyroxine 125 mcg Tablet
125 mcg PO SUSA@0800
finasteride 1 mg Tablet
1 mg PO DAILY
magnesium oxide 400 mg magnesium Tablet
400 mg PO DAILY
calcium carbonate-vitamin D3 [Caltrate with Vitamin D3] 600 mg-20 mcg (800 unit) Tablet
1 tab PO DAILY
calcium carbonate-vitamin D3 [Caltrate with Vitamin D3] 600 mg-20 mcg (800 unit) Tablet
2 tab PO HS
Referrals:
Twin Gates MD [Family Provider] -
Interventions
Interventions:
*Risk Screen - Suicide Last Done: 07/13/23 10:48
*General Assessment Last Done: 07/13/23 10:48
*Neglect/Abuse Screening Last Done: 07/13/23 10:48
ED- Fall Risk Assessment Last Done: 07/13/23 09:14
*ED COVID-19 Vaccine History Last Done: 07/13/23 08:33
ED-Skin Assessment Last Done: 07/13/23 09:14
ED-Peripheral Vascular Assessment Last Done: 07/13/23 09:14
ED- Pulmonary Assessment Last Done: 07/13/23 09:14
ED- Cardiac Assessment Last Done: 07/13/23 09:14
Discharge Date and Time
Print Language: MONGOLIAN
[2023-07-13] MEDS: TORADOL 15 MG IV ×2 (14:01→20:29)
[2023-07-13] MEDS: DECADRON 10 MG IV (14:02)
[2023-07-13 14:05] VITALS: BP 128/73
--- NOTE | 2023-07-13 14:57 | CM ---
Cm reviewed medical records. Patient lives alone, and PT has recommended that he is unsafe for home discharge. Patient will need a bed search and pending authorization for placement.
--- NOTE | 2023-07-13 15:29 | HPS.HSE ---
Family Physician
-
Family Physician: Twin Gates
Chief Complaint
-
thigh pain
History of Present Illness
83-year-old male significant past medical history as below who is presenting from home with severe right thigh pain. Patient stated thigh pain worsened overnight into this morning. States likely has been ongoing for the past 2 days. States a
sharp like type pain worse with movement. No tightness. Denies any numbing or tingling. Denies any trauma. Denies any falls recently. States due to severe onset of pain he decided to come into the ER. Denies any urinary or fecal incontinence.
States he underwent prostate biopsy and postprocedure did not have any complication including hematuria, prostate pain, dysuria. At baseline he is able to ambulate without any cane or walker. No calf pain or foot pain. Patient recently was taken
off aspirin for his prostate biopsy and subsequently afterwards it was restarted. Patient was evaluated in the emergency room by vascular surgery with palpable femoral popliteal and DP pulses. Doppler pulses to right DP and PT were noted. Patient
received IV steroids and Toradol And Tylenol in the ER.
Medical History
Past Medical History
Past Medical History: Reports Other
Additional Past Medical History:
Peripheral Arterial Disease
Essential Hypertension
Hyperlipidemia
Seizure Disorder
Hypothyroidism
Prostate Cancer
Past Surgical History: Reports Other
Additional Past Surgical History:
Right Fem-Pop Bypass
Appendectomy
Herniated Disc Repair
Knee Replacement x 3
Social History
Tobacco: Non-smoker
Living: Alone
Family History
Family History: Not pertinent
Allergies / Home Medications
Allergies reflects when Allergies were last updated in [employer].
Home Medications with original date entered in [employer]
Allergy/Medication List:
Allergies
Allergy/AdvReac Type Severity Reaction Status Date / Time
clopidogrel bisulfate Allergy Unknown Verified 07/13/23 08:35
[From Plavix]
codeine Allergy constipatio Verified 07/13/23 08:35
n
levetiracetam [From [facility]] Allergy Unknown Verified 07/13/23 08:35
lisinopril Allergy 'tickling Verified 07/13/23 08:35
cough'
Home Medications
irbesartan 150 mg tablet 150 mg PO HS Blood Pressure 09/10/14
levothyroxine 125 mcg tablet 250 mcg PO MOTUWETHFR@0800 Thyroid 09/10/14
phenytoin sodium extended 100 mg capsule 100 - 200 mg PO .SEE BELOW 09/10/14
gabapentin 600 mg tablet 600 mg PO HS Pain 06/07/15
garlic 1,000 mg capsule 1,000 mg PO DAILY Supplement 06/25/15
phenytoin sodium extended 100 mg capsule 200 mg PO HS 06/25/15
cilostazol 100 mg tablet 100 mg PO BID VASCULAR DISEASE 10/27/22
aspirin 325 mg tablet 325 mg PO HS Pain 04/18/23
atorvastatin 80 mg tablet 80 mg PO HS High Cholesterol 04/18/23
finasteride 1 mg tablet 1 mg PO DAILY Urinary Issue 04/18/23
levothyroxine 125 mcg tablet 125 mcg PO SUSA@0800 Thyroid 04/18/23
magnesium oxide 400 mg PO DAILY Supplement 04/18/23
therapeutic multivitamin 1 tab PO DAILY 04/18/23
calcium carbonate 600 mg-vitamin D3 20 mcg (800 unit) tablet (Caltrate with Vitamin D3) 1 tab PO DAILY 07/13/23
calcium carbonate 600 mg-vitamin D3 20 mcg (800 unit) tablet (Caltrate with Vitamin D3) 2 tab PO HS 07/13/23
Review of Systems
-
History Source: Patient and Family
A 12 point ROS was completed and negative except as noted: Yes
Physical Exam
Vital Signs
Vital Signs
Temp Pulse Resp BP Pulse Ox
98.2 F 83 16 128/73 98
07/13/23 14:05 07/13/23 14:05 07/13/23 14:05 07/13/23 14:05 07/13/23 14:05
Physical Exam
General: Well Developed, Well Nourished and No Apparent Distress
HEENT: NormoCephalic, Moist mucous membranes and Atraumatic
Respiratory: Clear
Cardiac: S1/S2 and Regular Rhythm; No Murmur or Rub
GI: Soft, Non Tender, Non Distended and Normal Bowel Sounds; No Organomegaly
Rectal: Deferred by Provider
Musculoskeletal: No Clubbing, No Cyanosis, No Edema and Other (B/L KNEE SURGERY SCAR NOTED. TTP R lateal thigh. No swelling or edema. )
Skin: No Rash
Neuro: Awake, Alert, Oriented, AO x 3, No Motor Deficits and Nonfocal/grossly intact
Psych: Calm
Laboratory Results
-
07/13/23 09:06
07/13/23 09:06
Laboratory Results
PT 14.0 Sec (11.4-14.6) 07/13/23 09:06
INR 1.10 07/13/23 09:06
APTT 34.2 Sec (23.4-35.0) 07/13/23 09:06
Total Bilirubin 0.4 mg/dl (0.2-1.3) 07/13/23 09:06
AST 44 U/L (17-59) 07/13/23 09:06
ALT 65 U/L (0-50) H 07/13/23 09:06
Alkaline Phosphatase 166 U/L (38-126) H 07/13/23 09:06
Impression/Plan
-
#Right thigh pain likely secondary musculoskeletal versus radiculopathy
#Peripheral Arterial Disease status post right lower extremity bypass
Arterial Doppler done and noted
Vascular surgery no acute intervention required not concern for acute process
Check lumbar spine x-ray
Check right hip and pelvis x-ray
Check CK level as patient on high-dose statin
Continue with standing Tylenol
Ice pack to right thigh region
In the past patient symptoms have improved with steroids.
PT and OT in the morning
Continue aspirin and Pletal
Avoid opiates
#Leukocytosis likely reactive
Monitor for now
If spikes fever, check UA w/Ucx, blood culture and CXR.
#Essential Hypertension
Continue irbesartan with hold parameters
#Hyperlipidemia
Continue atorvastatin
#Seizure Disorder
Continue phenytoin
#Spinal Stenosis
Continue gabapentin
#Hypothyroidism
Continue levothyroxine
Hx Prostate CA s/p recent biopsy at new site per son
Continue finasteride and tamsulosin
DVT Proph: HSQ
Code Status: Full Code
d/w with son at bedside
I spent a total of 79 minutes with the patient or on the floor. More than 50% of this time involved counseling and coordination of care.
[2023-07-13 15:30] VITALS: BP 115/80
[2023-07-13 16:20] LABS: Creatine Phosphokinase 45 U/L (55-170)
[2023-07-13 18:05] VITALS: BMI 26.4
[2023-07-13] MEDS: LOVENOX 40 MG SC (19:08)
[2023-07-13] MEDS: PLETAL 100 MG PO (20:01)
[2023-07-13] MEDS: OSCAL 500 + D 1000 MG PO (21:31)
[2023-07-13] MEDS: LIPITOR 80 MG PO (21:31)
[2023-07-13] MEDS: ASPIRIN 325 MG PO (21:31)
[2023-07-13] MEDS: AVAPRO 150 MG PO (21:31)
[2023-07-13] MEDS: DILANTIN 100 MG PO (21:32)
[2023-07-13] MEDS: NEURONTIN 600 MG PO (21:32)
[2023-07-13 23:38] VITALS: BP 108/66
[2023-07-14] MEDS: SYNTHROID 125 MCG PO (06:08)
[2023-07-14 07:45] VITALS: BP 133/65
[2023-07-14 07:57] LABS: % Basophils 0.4 % (0-2); % Eosinophils 1.2 % (0-6); % Immature Granulocytes 0.4 % (0-0.5); % Lymphocytes 18.1 % (20.5-51.1); % Monocytes 14.8 % (1.7-9.3); % Neutrophils 65.1 % (42.2-75.2); Absolute Eosinophils 0.1 10^3/uL (0-0.7); Absolute Lymphocytes 1.9 10^3/uL (1.2-3.4); Absolute Monocytes 1.6 10^3/uL (0.1-0.6); Absolute Neutrophils 6.9 10^3/uL (1.4-6.5); Hematocrit 43.4 % (39.0-52.0); Hemoglobin 14.6 g/dL (13.0-18.0); Mean Corp Hgb Conc. 33.6 g/dL (33.0-37.0); Mean Corpuscular Hgb 30.8 pg (27.0-31.0); Mean Corpuscular Volume 91.6 fL (80.0-94.0); Mean Platelet Volume 9.8 fL (7.4-10.4); Nucleated Red Blood Cells % 0 % (-); Platelet Count 194 10^3/uL (130-400); Red Blood Cell Count 4.74 10^6/uL (4.70-6.10); Red Cell Dist. Width 12.8 % (11.5-14.5); White Blood Cell Count 10.6 10^3/uL (4.8-10.8)
[2023-07-14] MEDS: TYLENOL 1000 MG PO ×3 (08:37→22:05)
[2023-07-14] MEDS: DILANTIN 100 MG PO ×2 (08:37→13:06)
[2023-07-14] MEDS: MAG-TAB SR 84 MG PO (08:37)
[2023-07-14] MEDS: PLETAL 100 MG PO ×2 (08:37→19:47)
[2023-07-14] MEDS: THERAGRAN 1 TABLET PO (08:38)
[2023-07-14] MEDS: OSCAL 500 + D 500 MG PO (08:38)
[2023-07-14 08:42] LABS: Blood Urea Nitrogen 27 mg/dl (9-20); Calcium 10.2 mg/dl (8.4-10.2); Carbon Dioxide 33 mmol/L (22-30); Chloride 100 mmol/L (98-107); Estimated Creatinine Clearance 48 ml/min; Glucose 92 mg/dl (70-99); Potassium 4.6 mmol/L (3.5-5.1); Sodium 135 mmol/L (135-145); eGFR > 60.00
--- NOTE | 2023-07-14 11:09 | W.PN.HOSP.TC ---
Today's Communication/Plan
-
Start prednisone
Gabapentin 200 mg twice daily in addition to 600 at bedtime
Therapy pending
Assessment / Plan
Assessment / Plan
General: Well Developed, Well Nourished and No Apparent Distress
HEENT: NormoCephalic, Moist mucous membranes and Atraumatic
Respiratory: Clear
Cardiac: S1/S2 and Regular Rhythm; No Murmur or Rub
GI: Soft, Non Tender, Non Distended and Normal Bowel Sounds; No Organomegaly
Rectal: Deferred by Provider
Musculoskeletal: No Clubbing, No Cyanosis, No Edema and Other (B/L KNEE SURGERY SCAR NOTED. TTP R lateal thigh. No swelling or edema. )
Skin: No Rash
Neuro: Awake, Alert, Oriented, AO x 3, No Motor Deficits and Nonfocal/grossly intact
Psych: Calm
#Right lower extremity pain likely secondary to lumbar radiculopathy
# Bilateral severe hip osteoarthritis
#Peripheral Arterial Disease status post right lower extremity bypass
Arterial Doppler done and noted
Vascular surgery no acute intervention required not concern for acute process
X-rays noted and discussed with patient and son at bedside
CK level normal
Will increase gabapentin frequency
Start prednisone
Continue with standing Tylenol
Ice pack to right thigh region
In the past patient symptoms have improved with steroids.
PT and OT in the morning
Continue aspirin and Pletal
Avoid opiates
#Leukocytosis likely reactive
Monitor for now. Resolved.
If spikes fever, check UA w/Ucx, blood culture and CXR.
#Essential Hypertension
Continue irbesartan with hold parameters
#Hyperlipidemia
Continue atorvastatin
#Seizure Disorder
Continue phenytoin per patient following regimen at home
AM dose Day 1-100mg
Day 2-200mg
Day 3-200mg
Day 4-100mg
PM dose 200mg
May be will need to dose daily in am.
#Spinal Stenosis
Continue gabapentin
#Hypothyroidism
Continue levothyroxine
Hx Prostate CA s/p recent biopsy at new site per son
Continue finasteride and tamsulosin
DVT Proph: HSQ
Code Status: Full Code
d/w with son at bedside
Anticipated Discharge: 24 - 48 hours
Subjective/Interval History
-
Date of Service: July 14, 2023
states of improvement in pain
states of intermittent spasms in RLE radiating from back to R leg now
Objective Data
-
Labs:
Laboratory Results
07/14/23
07:28
WBC 10.6
Hgb 14.6
Hct 43.4
Plt Count 194
Sodium 135
Potassium 4.6
Chloride 100
Carbon Dioxide 33 H
BUN 27 H
Creatinine 1.1
Glucose 92
Calcium 10.2
Vital Signs:
Vital Signs
Temp Pulse Resp BP Pulse Ox
97.7 F 70 20 133/65 96
07/14/23 07:45 07/14/23 07:45 07/14/23 07:45 07/14/23 07:45 07/14/23 07:45
I&O
07/13/23 07/14/23 07/15/23
06:59 06:59 06:59
Intake Total 240 / 240
Balance 240 / 240
Data Reviewed
-
Total Time Spent with Patient (in minutes): 55
[2023-07-14] MEDS: NEURONTIN 100 MG PO ×2 (12:44→19:47)
[2023-07-14] MEDS: DELTASONE 40 MG PO (12:44)
[2023-07-14 15:15] VITALS: BP 99/60
--- NOTE | 2023-07-14 16:25 | CM ---
met with patient at bedside.he lives alone in house with 4 steps to enter,his bed and bath is on the first level,he was amb i and i with his adl's until he developed right hip pain.his pcp is dr guille cuenca and he uses [facility] in [place].patient with a hx of femoral artery bypass rle is adm with inc pain in right thigh area.he was seen by vascular surgery who are rec no intervention,patient is on gabapentin and prednisone.he willhave an rmi right le.patient was seen by
therapy who recommend skilled rehab.patient has declined for now until he gets results of mri. Plan home with hcs vs ip snf.
[2023-07-14] MEDS: LOVENOX 40 MG SC (16:43)
[2023-07-14] MEDS: SENOKOT-S 1 TABLET PO (19:58)
[2023-07-14] MEDS: ASPIRIN 325 MG PO (21:56)
[2023-07-14] MEDS: OSCAL 500 + D 1000 MG PO (21:56)
[2023-07-14] MEDS: LIPITOR 80 MG PO (21:56)
[2023-07-14] MEDS: AVAPRO 150 MG PO (21:57)
[2023-07-14] MEDS: NEURONTIN 600 MG PO (22:05)
[2023-07-14] MEDS: DILANTIN 200 MG PO (22:08)
[2023-07-14 22:20] VITALS: BP 123/68
[2023-07-15] MEDS: SYNTHROID 125 MCG PO (06:03)
[2023-07-15 07:18] VITALS: BP 133/75
[2023-07-15] MEDS: OSCAL 500 + D 500 MG PO (08:42)
[2023-07-15] MEDS: NEURONTIN 100 MG PO ×2 (08:43→15:53)
[2023-07-15] MEDS: MAG-TAB SR 84 MG PO (08:43)
[2023-07-15] MEDS: PLETAL 100 MG PO ×2 (08:43→20:41)
[2023-07-15] MEDS: DELTASONE 40 MG PO (08:43)
[2023-07-15] MEDS: TYLENOL 1000 MG PO ×3 (08:43→22:03)
[2023-07-15] MEDS: THERAGRAN 1 TABLET PO (08:43)
[2023-07-15] MEDS: DILANTIN 200 MG PO ×2 (08:53→22:04)
--- NOTE | 2023-07-15 11:58 | W.PN.HOSP.TC ---
Today's Communication/Plan
-
With prednisone
continue gabapentin
MRI spine pending
Case management for placement
Assessment / Plan
Assessment / Plan
General: Well Developed, Well Nourished and No Apparent Distress
HEENT: NormoCephalic, Moist mucous membranes and Atraumatic
Respiratory: Clear
Cardiac: S1/S2 and Regular Rhythm; No Murmur or Rub
GI: Soft, Non Tender, Non Distended and Normal Bowel Sounds; No Organomegaly
Musculoskeletal: No Clubbing, No Cyanosis, No Edema and Other (B/L KNEE SURGERY SCAR NOTED. Tender to palpation right medial thigh.)
Skin: No Rash
Neuro: Awake, Alert, Oriented, AO x 3, No Motor Deficits and Nonfocal/grossly intact
Psych: Calm
#Right lower extremity pain likely secondary to lumbar radiculopathy
# Bilateral severe hip osteoarthritis
#Peripheral Arterial Disease status post right lower extremity bypass
Arterial Doppler done and noted
Vascular surgery no acute intervention required not concern for acute process
X-rays noted and discussed with patient and son at bedside
CK level normal
Will increase gabapentin frequency added additional 100 mg twice daily max 900 and daily due to creatinine clearance
Start prednisone quick taper regimen
Continue with standing Tylenol
Ice pack to right thigh region
In the past patient symptoms have improved with steroids.
PT and OT in the morning recommending SNF
Continue aspirin and Pletal
Avoid opiates
MRI lumbar spine pending
#Leukocytosis likely reactive
Monitor for now. Resolved.
If spikes fever, check UA w/Ucx, blood culture and CXR.
#Essential Hypertension
Continue irbesartan with hold parameters. Blood pressure 133/75
#Hyperlipidemia
Continue atorvastatin
#Seizure Disorder
Continue phenytoin per patient following regimen at home. Daily dosing in the morning. Will be due for 100 mg a.m.
AM dose Day 1-100mg
Day 2-200mg
Day 3-200mg
Day 4-100mg
PM dose 200mg
May be will need to dose daily in am.
#Spinal Stenosis
Continue gabapentin
#Hypothyroidism
Continue levothyroxine
Hx Prostate CA s/p recent biopsy at new site per son
Continue finasteride and tamsulosin
DVT Proph: HSQ
Code Status: Full Code
d/w with son at bedside on 07/13
PT/OT rec SNF
Anticipated Discharge: Within 24 hours
Subjective/Interval History
-
Date of Service: July 15, 2023
States of intermittent thigh pain radiating to the leg
States of spasms
Objective Data
-
Vital Signs:
Vital Signs
Temp Pulse Resp BP Pulse Ox
97.5 F 92 16 133/75 94
07/15/23 07:18 07/15/23 07:18 07/15/23 07:18 07/15/23 07:18 07/15/23 07:18
I&O
07/14/23 07/15/23 07/16/23
06:59 06:59 06:59
Intake Total 240 / 240 1350 / 1350
Output Total 220 / 220
Balance 240 / 240 1130 / 1130
[2023-07-15 15:58] VITALS: BP 121/75
[2023-07-15 16:14] VITALS: BP 128/84; PULSE 99; O2SAT 96
[2023-07-15] MEDS: LOVENOX 40 MG SC (17:41)
[2023-07-15] MEDS: MIRALAX 17 GRAMS PO (20:45)
[2023-07-15] MEDS: OSCAL 500 + D 1000 MG PO (22:03)
[2023-07-15] MEDS: LIPITOR 80 MG PO (22:03)
[2023-07-15] MEDS: NEURONTIN 600 MG PO (22:04)
[2023-07-15] MEDS: AVAPRO 150 MG PO (22:04)
[2023-07-15] MEDS: ASPIRIN 325 MG PO (22:04)
[2023-07-15 23:30] VITALS: BP 113/60
[2023-07-16] MEDS: SYNTHROID 250 MCG PO (06:11)
[2023-07-16 08:09] VITALS: BP 116/65
[2023-07-16 08:35] LABS: Dilantin 11.5 ug/ml (10-20)
[2023-07-16] MEDS: DELTASONE 40 MG PO (09:56)
[2023-07-16] MEDS: THERAGRAN 1 TABLET PO (09:56)
[2023-07-16] MEDS: TYLENOL 1000 MG PO (09:56)
[2023-07-16] MEDS: PLETAL 100 MG PO (09:57)
[2023-07-16] MEDS: MAG-TAB SR 84 MG PO (09:57)
[2023-07-16] MEDS: OSCAL 500 + D 500 MG PO (09:57)
[2023-07-16] MEDS: DILANTIN 100 MG PO (09:57)
[2023-07-16] MEDS: NEURONTIN 100 MG PO (09:57)
--- NOTE | 2023-07-16 11:33 | W.PN.HOSP.TC ---
Addendum entered and electronically signed by Rahul Phillips MD 07/16/23 13:47:
Had large BM today, no problem with constipation
Original Note:
Today's Communication/Plan
-
dc to home
Assessment / Plan
Assessment / Plan
#Right lower extremity pain likely secondary to lumbar radiculopathy
MRI: 1. Severe chronic discogenic degenerative disease at L5/S1. Previous right L5 hemilaminectomy. 5.8 mm osteophyte or focal ligamentum flavum thickening protruding anteriorly from the right facet joint at L5/S1 causing severe right lateral
recess stenosis and descending right S1 nerve root impingement which appears unchanged. Mild central canal stenosis at L5/S1.
2. MODERATE CENTRAL CANAL STENOSIS and moderate bilateral neural foraminal narrowing at L4/L5 which appears to mildly increased since 09/22/2020.
3. Mild to moderate central canal stenosis at L3/L4 which appears unchanged.
4. Mild central canal stenosis at L2/L3 which appears unchanged.
5. Chronic inferior endplate fracture of T12 with moderate loss of vertebral body height which is unchanged.
# Bilateral severe hip osteoarthritis
#Peripheral Arterial Disease status post right lower extremity bypass
Arterial Doppler done and noted
Vascular surgery no acute intervention required not concern for acute process
CK level normal
Will increase gabapentin frequency added additional 100 mg twice daily max 900 and daily due to creatinine clearance
Started prednisone quick taper regimen
Continue with standing Tylenol
Ice pack to right thigh region
In the past patient symptoms have improved with steroids.
PT and OT recommending SNF, pt refuses, wants to be dc to home. Will consult VN
Continue aspirin and Pletal
Avoid opiates
#Leukocytosis likely reactive
13.0-->10.6, with pt on steroids
Monitor for now. Resolved.
#Essential Hypertension
Continue irbesartan with hold parameters. Blood pressure 133/75
#Hyperlipidemia
Continue atorvastatin
#Seizure Disorder
Continue phenytoin per patient following regimen at home. Daily dosing in the morning. Will be due for 100 mg a.m.
AM dose Day 1-100mg
Day 2-200mg
Day 3-200mg
Day 4-100mg
PM dose 200mg
#Spinal Stenosis
Continue gabapentin
#Hypothyroidism
Continue levothyroxine
Hx Prostate CA s/p recent biopsy at new site per son
Continue finasteride and tamsulosin
DVT Proph: HSQ
Code Status: Full Code
Dr. Ohara d/w with son at bedside on 07/[address] Bean, agreed with change to full admit from obs
dc to home
see dictated note
complex discharge
More than 30 minutes spent in discharge including
Final examination of the patient
Summarizing hospital stay
Instructions for continuing care to all relevant caregivers
Preparation of discharge records, prescriptions, and referral forms
Total time spent (in minutes): 45
Anticipated Discharge: Today
Subjective/Interval History
-
Date of Service: July 16, 2023
Generally feels better and does not wish to go to a SNF, feels well enough that wants to go home
Objective Data
-
Vital Signs:
Vital Signs
Temp Pulse Resp BP Pulse Ox
97.5 F 73 18 116/65 97
07/16/23 08:09 07/16/23 08:09 07/16/23 08:09 07/16/23 08:09 07/16/23 08:09
I&O
07/15/23 07/16/23 07/17/23
06:59 06:59 06:59
Intake Total 1350 / 1350 1550 / 1550
Output Total 220 / 220 150 / 150
Balance 1130 / 1130 1400 / 1400
Review of Systems
-
History Source: Patient and Coordinated Provider
Constitutional: Denies Fever
EENT: Reports No Symptoms Reported
Respiratory: Reports No Symptoms; Denies Cough, Hemoptysis or Trouble Breathing
Cardiac: Reports No Symptoms; Denies Chest Pain
Abdomen/GI: Reports No Symptoms; Denies Abdominal Pain
Genitourinary: Reports No Symptoms
Musculoskeletal: Reports Arthralgias (leg pains better)
Neuro: Reports No Symptoms
Physical Exam
-
General: Well Developed, Well Nourished and No Apparent Distress
HEENT: Normocephalic, Atraumatic and Moist Mucous Membranes
Respiratory: Clear to Auscultation; Negative Wheezes, Rales or Rhonchi
Cardiac: Regular Rhythm and S1/S2
GI: Soft, Nontender and Nondistended
Musculoskeletal: No Clubbing, No Cyanosis and No Edema
Skin: Warm and Dry
Neuro: Awake, Alert and Oriented
--- NOTE | 2023-07-16 13:39 | CM ---
Spoke with attending who stated that patient is medically stable for discharge. Met with patient who is agreeable to returning home with VN through . Updated [facility] liason. [facility] signed and on chart.
Plan: Case management will continue to follow and assist with discharge planning. Patient would like to return home with VN services. He confirmed that he has a ride.
--- NOTE | 2023-07-16 14:43 | VNURNOTE ---
Home Health Liaison spoke with patient at 1415 to discuss [facility] nurse/therapy, visits, schedule and homebound status.
Patient is not homebound and is asking to be called at a later time to see what he needs.
Liaison attempted to clarify PT/OT need and patient clearly stated 'I do not need that at home'
Patient understands to follow up with PCP and follow discharge instructions. He understands that no referral will be made at this time.
NO [facility] referral at this time, patient is not homebound.
KISHAN and Dr Phillips updated.
--- NOTE | 2023-07-17 07:03 | W.DS.TRANS ---
DC Summary - Underwriting Manager
-
Discharge Instructions:
Discharge Diagnosis/Procedures Spinal Stenosis
Diet No added salt
Activity With assistance,With Walker
Driving Restrictions As prior to admission
Bathing Restrictions None
Blood Work CBC, CMP, UA with C&S in 1 week
Other Services VN,PT
Instructions:
Stand-Alone Forms:
Changes to Home Medications: Yes
Discharge Medications:
DC Medications w/original date entered in [employer]
irbesartan 150 mg tablet 150 mg PO HS Blood Pressure 09/10/14
levothyroxine 125 mcg tablet 250 mcg PO MOTUWETHFR@0800 Thyroid 09/10/14
phenytoin sodium extended 100 mg capsule 100 - 200 mg PO .SEE BELOW 09/10/14
gabapentin 600 mg tablet 600 mg PO HS Pain 06/07/15
garlic 1,000 mg capsule 1,000 mg PO DAILY Supplement 06/25/15
phenytoin sodium extended 100 mg capsule 200 mg PO HS 06/25/15
cilostazol 100 mg tablet 100 mg PO BID VASCULAR DISEASE 10/27/22
aspirin 325 mg tablet 325 mg PO HS Pain 04/18/23
atorvastatin 80 mg tablet 80 mg PO HS High Cholesterol 04/18/23
finasteride 1 mg tablet 1 mg PO DAILY Urinary Issue 04/18/23
levothyroxine 125 mcg tablet 125 mcg PO SUSA@0800 Thyroid 04/18/23
magnesium oxide 400 mg PO DAILY Supplement 04/18/23
therapeutic multivitamin 1 tab PO DAILY 04/18/23
calcium carbonate 600 mg-vitamin D3 20 mcg (800 unit) tablet (Caltrate with Vitamin D3) 1 tab PO DAILY 07/13/23
calcium carbonate 600 mg-vitamin D3 20 mcg (800 unit) tablet (Caltrate with Vitamin D3) 2 tab PO HS 07/13/23
acetaminophen 500 mg tablet (Tylenol Extra Strength) 1,000 mg (2 x 500 mg) PO TID #0 tabs 07/16/23
atorvastatin 80 mg tablet 80 mg PO HS #0 tabs 07/16/23
bisacodyl 10 mg rectal suppository 10 mg LA [id number] PRN constipation #0 ea 07/16/23
gabapentin 100 mg capsule 100 mg PO BID@0800,1600 #60 caps 07/16/23
phenytoin sodium extended 100 mg capsule 200 mg (2 x 100 mg) PO HS #0 caps 07/16/23
polyethylene glycol 3350 17 gram oral powder packet (HealthyLax) 17 g PO DAILYPRN PRN constipation #0 ea 07/16/23
prednisone 10 mg tablet 10 mg PO DIRECTED #30 tabs 07/16/23
sennosides 8.6 mg-docusate sodium 50 mg tablet 1 tab PO BIDPRN PRN constipation #0 tabs 07/16/23
Home Medication Changes
Gabapentin dose increased to 100 mg bid and continue prior 600 mg qhs
Prednisone taper ordered
Pending Results: No
== END 2023-07-16 15:35 | disposition home health service (06) | DRG 552 ==
LOC: 4 EAST ACU 10:31
PROVIDERS: Physician Assistant; ADMITTING PHYSICIAN Hospitalist; ATTENDING PHYSICIAN Internal Medicine; EMERGENCY PHYSICIAN Emergency Medicine; FAMILY PHYSICIAN Family Medicine; OTHER PHYSICIAN Surgery Vascular Surgery
DX: M47.26 Other spondylosis with radiculopathy, lumbar region (principal); M51.16 Intervertebral disc disorders with radiculopathy, lumbar region; C61 Malignant neoplasm of prostate; G40.909 Epilepsy, unspecified, not intractable, without status epilepticus; E03.9 Hypothyroidism, unspecified; I10 Essential (primary) hypertension; M48.061 Spinal stenosis, lumbar region without neurogenic claudication; K21.9 Gastro-esophageal reflux disease without esophagitis; D72.829 Elevated white blood cell count, unspecified; E78.00 Pure hypercholesterolemia, unspecified; I70.201 Unspecified atherosclerosis of native arteries of extremities, right leg; M16.0 Bilateral primary osteoarthritis of hip; Z88.8 Allergy status to other drugs, medicaments and biological substances; Z79.02 Long term (current) use of antithrombotics/antiplatelets; Z79.890 Hormone replacement therapy; Z88.5 Allergy status to narcotic agent; Z79.82 Long term (current) use of aspirin
CPT/HCPCS: 72100; 72148; 73502; 80048; 80053; 80185; 82550; 85025; 85610; 85730; 93922; 93925; 96374; 96375; 97116; 97166; 99284

== ENCOUNTER → 2023-10-01 14:55 | Outpatient (REF) | payer OTHER, SELFPAY | LOC: MRI 3T 14:55 | PROVIDERS: ATTENDING PHYSICIAN Radiology Radiation Oncology; FAMILY PHYSICIAN Family Medicine | DX: C61 Malignant neoplasm of prostate (principal) | CPT/HCPCS: 72197; A9575 ==

== ENCOUNTER → 2023-10-23 08:01 | Outpatient (REF) | payer OTHER, SELFPAY ==
[2023-10-23 09:26] LABS: % Basophils 0.4 % (0-2); % Eosinophils 1.8 % (0-6); % Immature Granulocytes 0.6 % (0-0.5); % Lymphocytes 16.3 % (20.5-51.1); % Monocytes 10.8 % (1.7-9.3); % Neutrophils 70.1 % (42.2-75.2); Absolute Eosinophils 0.2 10^3/uL (0-0.7); Absolute Immature Granulocytes 0.1 10^3/uL (0-0.05); Absolute Lymphocytes 1.7 10^3/uL (1.2-3.4); Absolute Monocytes 1.1 10^3/uL (0.1-0.6); Absolute Neutrophils 7.2 10^3/uL (1.4-6.5); Hematocrit 48.6 % (39.0-52.0); Hemoglobin 16.7 g/dL (13.0-18.0); Mean Corp Hgb Conc. 34.4 g/dL (33.0-37.0); Mean Corpuscular Hgb 31.6 pg (27.0-31.0); Mean Platelet Volume 9.3 fL (7.4-10.4); Nucleated Red Blood Cells % 0 % (-); Platelet Count 218 10^3/uL (130-400); Red Blood Cell Count 5.28 10^6/uL (4.70-6.10); Red Cell Dist. Width 13.8 % (11.5-14.5); White Blood Cell Count 10.3 10^3/uL (4.8-10.8)
[2023-10-23 11:01] LABS: Dilantin 18.2 ug/ml (10-20)
[2023-10-23 14:02] LABS: TSH Reflex To Free T4 6.51 uIU/ml (0.47-4.68)
[2023-10-23 15:06] LABS: ALT (SGPT) 106 U/L (0-50); AST (SGOT) 71 U/L (17-59); Albumin 4.4 g/dl (3.5-5.0); Alkaline Phosphatase 134 U/L (38-126); Blood Urea Nitrogen 24 mg/dl (9-20); Calcium 10.1 mg/dl (8.4-10.2); Carbon Dioxide 27 mmol/L (22-30); Chloride 103 mmol/L (98-107); Glucose 101 mg/dl (70-99); HDL Cholesterol 80 mg/dl; LDL Cholesterol, Calculated 85 mg/dl; Potassium 4.8 mmol/L (3.5-5.1); Sodium 137 mmol/L (135-145); Total Bilirubin 0.5 mg/dl (0.2-1.3); Total Cholesterol 193 mg/dl (50-199); Total Protein 6.9 g/dl (6.3-8.2); Triglyceride 140 mg/dl (10-149); Very Low Density Lipoprotein 28 mg/dl (0-30); eGFR > 60.00
== END ==
LOC: HWLAB 08:01
PROVIDERS: ATTENDING PHYSICIAN Family Medicine
DX: G40.909 Epilepsy, unspecified, not intractable, without status epilepticus (principal); E78.00 Pure hypercholesterolemia, unspecified; I10 Essential (primary) hypertension; C61 Malignant neoplasm of prostate; E03.9 Hypothyroidism, unspecified; I73.9 Peripheral vascular disease, unspecified; R79.89 Other specified abnormal findings of blood chemistry
CPT/HCPCS: 36415; 80053; 80061; 80185; 84439; 84443; 85025

== ENCOUNTER → 2023-11-29 10:46 | Outpatient (REF) | payer OTHER, SELFPAY | LOC: HWRAD 10:46 | PROVIDERS: ATTENDING PHYSICIAN Family Medicine | DX: R79.89 Other specified abnormal findings of blood chemistry (principal) | CPT/HCPCS: 76700 ==

== ENCOUNTER → 2024-02-28 06:38 | Outpatient (REF) | payer OTHER, SELFPAY ==
[2024-02-28 08:25] LABS: ALT (SGPT) 110 U/L (0-50); AST (SGOT) 76 U/L (17-59); Albumin 4.5 g/dl (3.5-5.0); Alkaline Phosphatase 120 U/L (38-126); Blood Urea Nitrogen 19 mg/dl (9-20); Carbon Dioxide 33 mmol/L (22-30); Chloride 102 mmol/L (98-107); GGTP 218 U/L (15-73); Glucose 108 mg/dl (70-99); Potassium 5.2 mmol/L (3.5-5.1); Sodium 141 mmol/L (135-145); Total Bilirubin 0.4 mg/dl (0.2-1.3); Total Protein 6.9 g/dl (6.3-8.2); eGFR > 60.00
[2024-02-28 08:48] LABS: PSA, Total - Screen 1.56 ng/ml (0.0-4.0)
== END ==
LOC: REG 06:38
PROVIDERS: ATTENDING PHYSICIAN Family Medicine; OTHER PHYSICIAN Radiology Radiation Oncology; REFERRING PHYSICIAN Family Medicine Geriatric Medicine
DX: R74.8 Abnormal levels of other serum enzymes (principal); C61 Malignant neoplasm of prostate
CPT/HCPCS: 36415; 80053; 82977; G0103

== ENCOUNTER → 2024-03-03 07:23 | Outpatient (REF) | payer OTHER, SELFPAY | LOC: DHVS 07:23 | PROVIDERS: ATTENDING PHYSICIAN Surgery Vascular Surgery; FAMILY PHYSICIAN Family Medicine | DX: I73.9 Peripheral vascular disease, unspecified (principal) | CPT/HCPCS: 93922; 93925 ==

== ENCOUNTER → 2024-04-21 07:10 | Outpatient (REF) | payer OTHER, SELFPAY ==
[2024-04-21 08:16] LABS: ALT (SGPT) 98 U/L (0-50); AST (SGOT) 70 U/L (17-59); Albumin 4.7 g/dl (3.5-5.0); Alkaline Phosphatase 160 U/L (38-126); Blood Urea Nitrogen 21 mg/dl (9-20); Calcium 9.5 mg/dl (8.4-10.2); Carbon Dioxide 31 mmol/L (22-30); Chloride 101 mmol/L (98-107); GGTP 215 U/L (15-73); Glucose 108 mg/dl (70-99); Potassium 4.8 mmol/L (3.5-5.1); Sodium 141 mmol/L (135-145); Total Bilirubin 0.6 mg/dl (0.2-1.3); Total Protein 7.6 g/dl (6.3-8.2); eGFR > 60.00
[2024-04-21 15:35] LABS: Hepatitis C Antibody Negative (Negative)
== END ==
LOC: REG 07:10
PROVIDERS: ATTENDING PHYSICIAN Family Medicine
DX: R74.8 Abnormal levels of other serum enzymes (principal)
CPT/HCPCS: 36415; 80053; 82977; 86803

== ENCOUNTER → 2024-05-15 07:39 | Outpatient (REF) | payer OTHER, SELFPAY ==
[2024-05-15 09:33] LABS: % Basophils 0.5 % (0-2); % Eosinophils 2.7 % (0-6); % Immature Granulocytes 0.6 % (0-0.5); % Lymphocytes 11.6 % (20.5-51.1); % Monocytes 10.6 % (1.7-9.3); Absolute Eosinophils 0.2 10^3/uL (0-0.7); Absolute Immature Granulocytes 0.1 10^3/uL (0-0.05); Absolute Lymphocytes 0.9 10^3/uL (1.2-3.4); Absolute Monocytes 0.8 10^3/uL (0.1-0.6); Absolute Neutrophils 5.8 10^3/uL (1.4-6.5); Hematocrit 49.2 % (39.0-52.0); Hemoglobin 16.3 g/dL (13.0-18.0); Mean Corp Hgb Conc. 33.1 g/dL (33.0-37.0); Mean Corpuscular Hgb 31.7 pg (27.0-31.0); Mean Corpuscular Volume 95.5 fL (80.0-94.0); Mean Platelet Volume 9.7 fL (7.4-10.4); Nucleated Red Blood Cells % 0 % (-); Platelet Count 205 10^3/uL (130-400); Red Blood Cell Count 5.15 10^6/uL (4.70-6.10); Red Cell Dist. Width 12.9 % (11.5-14.5); White Blood Cell Count 7.8 10^3/uL (4.8-10.8)
[2024-05-15 09:58] LABS: Dilantin 13.7 ug/ml (10-20)
[2024-05-15 10:51] LABS: ALT (SGPT) 93 U/L (0-50); AST (SGOT) 66 U/L (17-59); Albumin 4.2 g/dl (3.5-5.0); Alkaline Phosphatase 153 U/L (38-126); Blood Urea Nitrogen 20 mg/dl (9-20); Calcium 9.7 mg/dl (8.4-10.2); Carbon Dioxide 28 mmol/L (22-30); Chloride 102 mmol/L (98-107); Glucose 102 mg/dl (70-99); Potassium 4.8 mmol/L (3.5-5.1); Sodium 138 mmol/L (135-145); Total Bilirubin 0.4 mg/dl (0.2-1.3); Total Protein 6.8 g/dl (6.3-8.2); eGFR > 60.00
== END ==
LOC: REG 07:39
PROVIDERS: ATTENDING PHYSICIAN Physician Assistant Medical
DX: R26.81 Unsteadiness on feet (principal); R25.1 Tremor, unspecified; Z71.89 Other specified counseling; E66.3 Overweight; Z68.26 Body mass index [BMI] 26.0-26.9, adult
CPT/HCPCS: 36415; 80053; 80185; 85025

== ENCOUNTER → 2024-05-27 06:33 | Outpatient (REF) | payer OTHER, SELFPAY ==
[2024-05-27 07:47] LABS: ALT (SGPT) 85 U/L (0-50); AST (SGOT) 64 U/L (17-59); Albumin 4.1 g/dl (3.5-5.0); Alkaline Phosphatase 150 U/L (38-126); Direct Bilirubin 0.1 mg/dl (0.0-0.4); Total Bilirubin 0.4 mg/dl (0.2-1.3); Total Protein 6.6 g/dl (6.3-8.2)
[2024-05-27 07:56] LABS: Total Iron Binding Capacity 281 ug/dl (261-462)
[2024-05-27 08:19] LABS: Ferritin 52.8 ng/ml (17.9-464.0)
[2024-05-28 16:48] LABS: Alpha-1-Antitrypsin 147 mg/dL (90-200); Ceruloplasmin 30 mg/dL (15-30)
[2024-05-29 01:20] LABS: LKM-1 Ab (IgG) 0.8 U (0.0-24.9)
[2024-05-29 01:52] LABS: ANA, IgG Reflex to HEp-2 None Detected (None Detected)
[2024-05-29 05:25] LABS: F-Actin Antibody IgG 5 Units (0-19); Mitochondrial M2 Ab, IgG 4.4 Units (0.0-24.9)
[2024-05-29 12:25] LABS: IgA 118 mg/dl (70-400); IgG 811 mg/dl (700-1600); IgM 139 mg/dl (40-230)
== END ==
LOC: REG 06:33
PROVIDERS: ATTENDING PHYSICIAN Internal Medicine Gastroenterology; FAMILY PHYSICIAN Family Medicine
DX: R79.89 Other specified abnormal findings of blood chemistry (principal)
CPT/HCPCS: 80076; 82103; 82390; 82728; 82784; 83550; 86015; 86038; 86376; 86381

== ENCOUNTER → 2024-06-03 06:20 | Outpatient (REF) | payer OTHER, SELFPAY ==
[2024-06-03 09:32] LABS: ALT (SGPT) 85 U/L (0-50); AST (SGOT) 58 U/L (17-59); Albumin 4.1 g/dl (3.5-5.0); Alkaline Phosphatase 153 U/L (38-126); Blood Urea Nitrogen 23 mg/dl (9-20); Calcium 9.7 mg/dl (8.4-10.2); Carbon Dioxide 30 mmol/L (22-30); Chloride 103 mmol/L (98-107); GGTP 199 U/L (15-73); Glucose 110 mg/dl (70-99); Potassium 4.7 mmol/L (3.5-5.1); Sodium 139 mmol/L (135-145); Total Bilirubin 0.4 mg/dl (0.2-1.3); Total Protein 6.7 g/dl (6.3-8.2); eGFR > 60.00
[2024-06-03 09:47] LABS: Hepatitis C Antibody Negative (Negative)
== END ==
LOC: RAD 06:20
PROVIDERS: ATTENDING PHYSICIAN Surgery Vascular Surgery; FAMILY PHYSICIAN Family Medicine
DX: I73.9 Peripheral vascular disease, unspecified (principal); R74.8 Abnormal levels of other serum enzymes
CPT/HCPCS: 36415; 80053; 82977; 86803; 93922; 93925

== ENCOUNTER → 2024-06-24 06:58 | Outpatient (REF) | payer OTHER, SELFPAY ==
[2024-06-24 08:19] LABS: % Basophils 0.6 % (0-2); % Eosinophils 4.2 % (0-6); % Immature Granulocytes 0.4 % (0-0.5); % Lymphocytes 13.4 % (20.5-51.1); % Monocytes 11.3 % (1.7-9.3); % Neutrophils 70.1 % (42.2-75.2); Absolute Eosinophils 0.3 10^3/uL (0-0.7); Absolute Lymphocytes 0.9 10^3/uL (1.2-3.4); Absolute Monocytes 0.8 10^3/uL (0.1-0.6); Absolute Neutrophils 4.7 10^3/uL (1.4-6.5); Hematocrit 49.2 % (39.0-52.0); Hemoglobin 16.6 g/dL (13.0-18.0); Mean Corp Hgb Conc. 33.7 g/dL (33.0-37.0); Mean Corpuscular Hgb 31.7 pg (27.0-31.0); Mean Corpuscular Volume 93.9 fL (80.0-94.0); Mean Platelet Volume 9.8 fL (7.4-10.4); Nucleated Red Blood Cells % 0 % (-); Platelet Count 202 10^3/uL (130-400); Red Blood Cell Count 5.24 10^6/uL (4.70-6.10); Red Cell Dist. Width 12.9 % (11.5-14.5); White Blood Cell Count 6.7 10^3/uL (4.8-10.8)
[2024-06-24 08:55] LABS: ALT (SGPT) 64 U/L (0-50); AST (SGOT) 54 U/L (17-59); Albumin 4.7 g/dl (3.5-5.0); Alkaline Phosphatase 147 U/L (38-126); Blood Urea Nitrogen 20 mg/dl (9-20); Calcium 10.1 mg/dl (8.4-10.2); Carbon Dioxide 30 mmol/L (22-30); Chloride 103 mmol/L (98-107); Glucose 102 mg/dl (70-99); HDL Cholesterol 75 mg/dl; LDL Cholesterol, Calculated 70 mg/dl; Potassium 5.3 mmol/L (3.5-5.1); Sodium 142 mmol/L (135-145); Total Bilirubin 0.6 mg/dl (0.2-1.3); Total Cholesterol 178 mg/dl (50-199); Total Protein 7.2 g/dl (6.3-8.2); Triglyceride 168 mg/dl (10-149); Very Low Density Lipoprotein 33 mg/dl (0-30); eGFR > 60.00
[2024-06-24 09:59] LABS: Dilantin 20.6 ug/ml (10-20)
[2024-06-24 10:03] LABS: Free T4 0.92 ng/dl (0.78-2.19)
== END ==
LOC: REG 06:58
PROVIDERS: ATTENDING PHYSICIAN Family Medicine
DX: E78.00 Pure hypercholesterolemia, unspecified (principal); I10 Essential (primary) hypertension; E03.9 Hypothyroidism, unspecified; G40.909 Epilepsy, unspecified, not intractable, without status epilepticus
CPT/HCPCS: 36415; 80053; 80061; 80185; 84439; 84443; 85025

== ENCOUNTER → 2024-07-18 08:14 | Outpatient (REF) | payer OTHER, SELFPAY | LOC: MRI 08:14 | PROVIDERS: ATTENDING PHYSICIAN Physician Assistant Medical; FAMILY PHYSICIAN Family Medicine | DX: R26.81 Unsteadiness on feet (principal); C61 Malignant neoplasm of prostate; G40.909 Epilepsy, unspecified, not intractable, without status epilepticus | CPT/HCPCS: 70553; A9575 ==

== ENCOUNTER → 2024-07-24 06:47 | Outpatient (REF) | payer OTHER, SELFPAY ==
[2024-07-24 07:59] LABS: Dilantin 18.8 ug/ml (10-20)
[2024-07-24 08:29] LABS: PSA, Total - Diagnostic 0.47 ng/ml (0.0-4.0)
[2024-07-24 08:58] LABS: Free T4 0.82 ng/dl (0.78-2.19)
== END ==
LOC: REG 06:47
PROVIDERS: ATTENDING PHYSICIAN Family Medicine Geriatric Medicine; FAMILY PHYSICIAN Family Medicine; REFERRING PHYSICIAN Psychiatry & Neurology Neurology
DX: E05.90 Thyrotoxicosis, unspecified without thyrotoxic crisis or storm (principal); G40.909 Epilepsy, unspecified, not intractable, without status epilepticus; C61 Malignant neoplasm of prostate
CPT/HCPCS: 36415; 80185; 84153; 84439; 84443

== ENCOUNTER → 2024-08-29 13:20 | Outpatient (REF) | payer OTHER, SELFPAY | LOC: MRI 13:20 | PROVIDERS: ATTENDING PHYSICIAN Internal Medicine Gastroenterology; FAMILY PHYSICIAN Family Medicine | DX: R79.89 Other specified abnormal findings of blood chemistry (principal) | CPT/HCPCS: 74183; 76391; A9575 ==

== ENCOUNTER → 2024-10-02 07:58 | Outpatient (REF) | payer OTHER, SELFPAY | LOC: HWLAB 07:58 | PROVIDERS: ATTENDING PHYSICIAN Family Medicine | DX: E03.9 Hypothyroidism, unspecified (principal); G40.909 Epilepsy, unspecified, not intractable, without status epilepticus | CPT/HCPCS: 36415; 80185; 84439; 84443 ==

== ENCOUNTER → 2024-10-18 06:17 | Outpatient (REF) | payer OTHER, SELFPAY | LOC: MRI 06:17 | PROVIDERS: ATTENDING PHYSICIAN Physician Assistant Surgical; FAMILY PHYSICIAN Family Medicine | DX: M16.0 Bilateral primary osteoarthritis of hip (principal); M54.16 Radiculopathy, lumbar region; M48.061 Spinal stenosis, lumbar region without neurogenic claudication; Z98.890 Other specified postprocedural states | CPT/HCPCS: 72148 ==

== ENCOUNTER → 2024-12-19 06:28 | Outpatient (REF) | payer OTHER, SELFPAY ==
[2024-12-19 07:43] LABS: Hematocrit 48.1 % (39.0-52.0); Hemoglobin 15.9 g/dL (13.0-18.0); Mean Corp Hgb Conc. 33.1 g/dL (33.0-37.0); Mean Corpuscular Volume 93.4 fL (80.0-94.0); Nucleated Red Blood Cells % 0 % (-); Platelet Count 216 10^3/uL (130-400); Red Cell Dist. Width 13.1 % (11.5-14.5)
[2024-12-19 08:29] LABS: ALT (SGPT) 75 U/L (0-50); AST (SGOT) 56 U/L (17-59); Albumin 4.4 g/dl (3.5-5.0); Alkaline Phosphatase 160 U/L (38-126); Blood Urea Nitrogen 15 mg/dl (9-20); Calcium 9.9 mg/dl (8.4-10.2); Carbon Dioxide 32 mmol/L (22-30); Chloride 104 mmol/L (98-107); Glucose 99 mg/dl (70-99); HDL Cholesterol 70 mg/dl; LDL Cholesterol, Calculated 67 mg/dl; Potassium 4.5 mmol/L (3.5-5.1); Sodium 140 mmol/L (135-145); Total Protein 7.2 g/dl (6.3-8.2); Very Low Density Lipoprotein 39 mg/dl (0-30); eGFR > 60.00
[2024-12-19 08:59] LABS: PSA, Total - Screen 0.32 ng/ml (0.0-4.0)
== END ==
LOC: REG 06:28
PROVIDERS: ATTENDING PHYSICIAN Family Medicine Geriatric Medicine; FAMILY PHYSICIAN Family Medicine; OTHER PHYSICIAN Radiology Radiation Oncology
DX: I10 Essential (primary) hypertension (principal); E78.00 Pure hypercholesterolemia, unspecified; E03.9 Hypothyroidism, unspecified; E66.3 Overweight; C61 Malignant neoplasm of prostate; R79.89 Other specified abnormal findings of blood chemistry; R74.8 Abnormal levels of other serum enzymes; G40.909 Epilepsy, unspecified, not intractable, without status epilepticus; Z12.5 Encounter for screening for malignant neoplasm of prostate
CPT/HCPCS: 36415; 80053; 80061; 80185; 84443; 85025; G0103

== ENCOUNTER → 2024-12-26 09:43 | Outpatient (REF) | payer OTHER, SELFPAY | LOC: DHVS 09:43 | PROVIDERS: ATTENDING PHYSICIAN Surgery Vascular Surgery; FAMILY PHYSICIAN Family Medicine | DX: I73.9 Peripheral vascular disease, unspecified (principal) | CPT/HCPCS: 93922; 93925 ==

== ENCOUNTER → 2025-01-13 06:32 | Outpatient (REF) | payer OTHER, SELFPAY ==
[2025-01-13 08:30] LABS: Blood Urea Nitrogen 19 mg/dl (9-20); Calcium 9.6 mg/dl (8.4-10.2); Carbon Dioxide 30 mmol/L (22-30); Chloride 103 mmol/L (98-107); Glucose 102 mg/dl (70-99); Potassium 4.9 mmol/L (3.5-5.1); Sodium 140 mmol/L (135-145); eGFR > 60.00
== END ==
LOC: REG 06:32
PROVIDERS: ATTENDING PHYSICIAN Surgery Vascular Surgery; FAMILY PHYSICIAN Family Medicine
DX: I73.9 Peripheral vascular disease, unspecified (principal); G40.909 Epilepsy, unspecified, not intractable, without status epilepticus
CPT/HCPCS: 36415; 80048; 80185

== ENCOUNTER → 2025-01-20 08:06 | Outpatient (REF) | payer OTHER, SELFPAY | LOC: RAD 08:06 | PROVIDERS: ATTENDING PHYSICIAN Surgery Vascular Surgery; FAMILY PHYSICIAN Family Medicine; REFERRING PHYSICIAN Chiropractor | DX: I73.9 Peripheral vascular disease, unspecified (principal) | CPT/HCPCS: 75635; Q9967 ==

== ENCOUNTER → 2025-03-06 09:59 | Outpatient (REF) | payer OTHER, SELFPAY ==
[2025-03-06 11:58] LABS: PSA, Total - Diagnostic 0.26 ng/ml (0.0-4.0)
== END ==
LOC: REG 09:59
PROVIDERS: ATTENDING PHYSICIAN Family Medicine; REFERRING PHYSICIAN Radiology Radiation Oncology
DX: C61 Malignant neoplasm of prostate (principal)
CPT/HCPCS: 36415; 84153